=== PATIENT | male | born 1935 | race Caucasian/White ===

== ENCOUNTER 2016-06-02 20:59 | Emergency (ER) | payer MEDICARE, OTHER ==
[~2016-06-02] VITALS: Ht 177.8 cm; Wt 125.0 kg
[~2016-06-02 20:59] MED LIST: ALLO100T PO; ASPI81 PO; CIPR500T4 PO; EZET10 PO; LANTUSP SQ; LISI-360 PO; METO50CR PO; NOVOLOGP2 SQ
[2016-06-02 21:12] VITALS: BP 139/77; PULSE 78; RESP 24; TEMP 97.5; O2SAT 97
[2016-06-02 22:30] VITALS: BP 140/70; PULSE 80; RESP 16; O2SAT 97
--- NOTE | 2016-06-02 23:24 | PD ---
HPI Chief Complaint: cough for one month Time Seen by Provider: 23:17 Travel History International Travel<30 days: No Contact w/Intl Traveler<30days: No Traveled to known affect area: No History of Present Illness HPI The patient is a 80-year-old male that earlier today he felt some sharp, pleuritic pain in the midsternal area. It hurt so much when he took a deep breath that he had to breathe shallow respirations. This pain is subsequently gone and he denies any shortness of breath, fever or any chest pain at this time. The patient has had a "cold" for a month. He saw his primary care physician 2 days ago and was prescribed a course of prednisone as well as Levaquin which she is still on. He does not smoke. He does have a history of coronary artery disease and has several coronary stents. PFSH Past Medical History Arthritis: No Asthma: No Blood Disorders: No Anxiety: Yes Depression: No Heart Rhythm Problems: No Cancer: No Cardiac Catheterization: Yes (ONE STENT) Cardiovascular Problems: No High Cholesterol: Yes Chest Pain: Yes Congestive Heart Failure: No COPD: No Cerebrovascular Accident: No Diabetes: Yes Diminished Hearing: No GERD: No Glaucoma: No Gout: Yes Headaches: No Hepatitis: No Hiatal Hernia: No Hypertension: Yes Kidney Stones: No Musculoskeletal: No Neurologic: No Psychiatric: No Reproductive: No Respiratory: No Myocardial Infarction: No Renal Failure: No Seizures: No Sickle Cell Disease: No Sleep Apnea: No Thyroid Disease: No Ulcer: No PNEUMOCCOCAL Vaccine (Year): 2 Past Surgical History Abdominal Surgery: Yes (hernia repair) AICD: No Body Medical Devices: CARDIAC STENT Cardiac Surgery: No Ear Surgery: No Endocrine Surgery: No Eye Surgery: No Genitourinary Surgery: No Gynecologic Surgery: No Oral Surgery: No Pacemaker: No Thoracic Surgery: No Other Surgery: Yes (TOP OF HEAD SKIN ) Social History Alcohol Use: Yes (weekend) Tobacco Use: No Substance Use: No Allergies-Medications (Allergen,Severity, Reaction): Coded Allergies: Penicillin (Verified Allergy, Severe, SHOCK, 07/26/12) Reported Meds & Prescriptions Reported Meds & Active Scripts Active Reported Lantus Inj (Insulin Glargine) 1,000 Unit/10 Ml Vial 60 Units SQ BID Lisinopril-Hctz 20-12.5 Mg Tab 1 Tab PO DAILY Zetia (Ezetimibe) 10 Mg Tab 10 Mg PO HS Aspirin 81 Mg Tabdr 162 Mg PO DAILY Latanoprost Opth Drops (Latanoprost) 0.005% Drops 1 Drop EACH EYE HS Refrigerate until opened. Novolog Inj (Insulin Aspart) 1,000 Unit/10 Ml Vial 14 Units SQ TID Max dose at bedtime ( ) units; sugars less than 70,(0) units; sugars 150-199,(2) units; sugars 200-249,(4) units; sugars 250-299,(7) units; sugars 300-349,(10) units; sugars greater than 349,(12)units Metoprolol Tartrate 25 Mg Tab 25 Mg PO HS Allopurinol 100 Mg Tab 100 Mg PO DAILY Review of Systems Except as stated in HPI: all other systems reviewed are Neg Physical Exam Narrative GENERAL: The patient is obese and alert in no apparent distress. His vital signs initially showed a respiratory rate of 24 with the rest of the vital signs being normal and oximetry being 97% on room air. Repeat respiratory rate is 21 I see the patient SKIN: Warm and dry. HEAD: Atraumatic. Normocephalic. EYES: Pupils equal and round. No scleral icterus. No injection or drainage. ENT: No nasal bleeding or discharge. Mucous membranes pink and moist. NECK: Trachea midline. No JVD. CARDIOVASCULAR: Regular rate and rhythm. No murmur appreciated. RESPIRATORY: No accessory muscle use. Clear to auscultation. Breath sounds equal bilaterally. GASTROINTESTINAL: Abdomen soft, non-tender, nondistended. Hepatic and splenic margins not palpable. MUSCULOSKELETAL: No obvious deformities. No clubbing. No cyanosis. No edema. NEUROLOGICAL: Awake and alert. No obvious cranial nerve deficits. Motor grossly within normal limits. Normal speech. PSYCHIATRIC: Appropriate mood and affect; insight and judgment normal. Data Data Last Documented VS Vital Signs Date Time Temp Pulse Resp B/P Pulse Ox O2 Delivery O2 Flow Rate FiO2 06/03/16 00:52 79 18 148/59 96 Room Air 06/02/16 21:12 97.5 Orders Basic Metabolic Panel (Bmp) (06/02/16 23:18) B-Type Natriuretic Peptide (06/02/16 23:18) Ckmb (Isoenzyme) Profile (06/02/16 23:18) Complete Blood Count With Diff (06/02/16 23:18) Comprehensive Metabolic Panel (06/02/16 23:18) Magnesium (Mg) (06/02/16 23:18) Troponin I (06/02/16 23:18) Ecg Monitoring (06/02/16 23:18) Iv Access Insert/Monitor (06/02/16 23:18) Oximetry (06/02/16 23:18) Oxygen Administration (06/02/16 23:18) Sodium Chloride 0.9% Flush (Ns Flush) (06/02/16 23:30) Chest, Pa & Lat (06/02/16 23:18) CKMB (06/02/16 23:40) CKMB% (06/02/16 23:40) Labs Laboratory Tests Test 06/02/16 23:40 White Blood Count 17.4 TH/MM3 Red Blood Count 4.81 MIL/MM3 Hemoglobin 15.6 GM/DL Hematocrit 47.1 % Mean Corpuscular Volume 97.9 FL Mean Corpuscular Hemoglobin 32.5 PG Mean Corpuscular Hemoglobin 33.2 % Concent Red Cell Distribution Width 13.9 % Platelet Count 256 TH/MM3 Mean Platelet Volume 9.7 FL Neutrophils (%) (Auto) 72.3 % Lymphocytes (%) (Auto) 19.2 % Monocytes (%) (Auto) 7.6 % Eosinophils (%) (Auto) 0.6 % Basophils (%) (Auto) 0.3 % Neutrophils # (Auto) 12.6 TH/MM3 Lymphocytes # (Auto) 3.3 TH/MM3 Monocytes # (Auto) 1.3 TH/MM3 Eosinophils # (Auto) 0.1 TH/MM3 Basophils # (Auto) 0.1 TH/MM3 CBC Comment DIFF FINAL Differential Comment Sodium Level 143 MEQ/L Potassium Level 3.7 MEQ/L Chloride Level 104 MEQ/L Carbon Dioxide Level 29.8 MEQ/L Anion Gap 9 MEQ/L Blood Urea Nitrogen 18 MG/DL Creatinine 1.10 MG/DL Estimat Glomerular Filtration 65 ML/MIN Rate Random Glucose 108 MG/DL Calcium Level 8.3 MG/DL Magnesium Level 2.4 MG/DL Total Bilirubin 0.4 MG/DL Aspartate Amino Transf 29 U/L (AST/SGOT) Alanine Aminotransferase 39 U/L (ALT/SGPT) Alkaline Phosphatase 58 U/L Total Creatine Kinase 136 U/L Creatine Kinase MB 2.8 NG/ML Troponin I LESS THAN 0.02 NG/ML B-Type Natriuretic Peptide 20 PG/ML Total Protein 7.7 GM/DL Albumin 3.6 GM/DL MDM Medical Decision Making Medical Screen Exam Complete: Yes Emergency Medical Condition: Yes Medical Record Reviewed: Yes Interpretation(s) The EKG shows sinus rhythm with a rate of [address] elevation or depression. The white count is 17,400 with 72% neutrophils. The complete metabolic profile shows a calcium of 8.3 but is otherwise normal. The BNP is normal. The cardiac enzymes are normal. The chest x-ray shows no acute cardiopulmonary disease. Differential Diagnosis Viral syndrome, acute myocardial infarction, pneumonia, bronchitis, dehydration , electrolyte disorder, renal insufficiency Narrative Course The patient likely has a viral syndrome. The elevated white count is likely due to the prednisone that he has been on. Procedures EKG Prior to Arrival: No Diagnosis Primary Impression: Viral syndrome Additional Instructions: As we discussed, finish up the prednisone and the antibiotic. Follow-up with your primary care physician next week. Drink plenty of liquids. Viruses reduced resistance to bacterial infections such as pneumonia so if he get worse he may need to return to emergency department for reevaluation. Med/Other Pt SpecificInfo: No Change to Meds Disposition: 01 DISCHARGE HOME Condition: Stable Hernan Heard MD Jun 02, 2016 23:24
[2016-06-02] MEDS ORDERED: SODIUM CHLORIDE 0.9% FLUSH 5 ML FLUSH IVF PRN (23:30)
--- NOTE | 2016-06-02 23:44 | RADHPO ---
EXAM DATE/TIME: 06/02/2016 23:24 [facility] COMPARISON: CHEST PA & LAT, July 26, 2012, 11:08. INDICATIONS : Chest pain. MEDICAL HISTORY : Hypertension. Hypercholesterolemia. Diabetes, Anxiety SURGICAL HISTORY : Coronary artery stent. Hernia repair, Hip surgery ENCOUNTER: Initial ACUITY: 1 day PAIN SCORE: 10 LOCATION: Bilateral chest FINDINGS: PA and lateral views of the chest demonstrate the lungs to be symmetrically aerated without evidence of mass, infiltrate or effusion. The cardiomediastinal contours are unremarkable. Osseous structure s are intact. CONCLUSION: No evidence of acute cardiopulmonary disease. Eliu Beaulieu MD on June 02, 2016 at 23:41 Board Certified Radiologist. This report was verified electronically.
[2016-06-03 00:02] LABS: AUTOMATED NEUTROPHIL # 12.6 TH/MM3 (1.8-7.7); BASOPHIL # 0.1 TH/MM3 (0-0.2); BASOPHIL % 0.3 % (0.0-2.0); EOSINOPHIL # 0.1 TH/MM3 (0-0.4); EOSINOPHIL % 0.6 % (0.0-4.0); HEMATOCRIT 47.1 % (39.0-51.0); LYMPH % 19.2 % (9.0-44.0); LYMPHOCYTE # 3.3 TH/MM3 (1.0-4.8); MEAN CELL VOLUME 97.9 FL (80.0-100.0); MEAN CORPUSCULAR HEMOGLOBIN 32.5 PG (27.0-34.0); MEAN CORPUSCULAR HGB CONC 33.2 % (32.0-36.0); MONO % 7.6 % (0.0-8.0); NEUT % 72.3 % (16.0-70.0); PLATELET COUNT 256 TH/MM3 (150-450); RED BLOOD COUNT 4.81 MIL/MM3 (4.50-5.90); RED CELL DISTRIBUTION WIDTH 13.9 % (11.6-17.2); WHITE BLOOD COUNT 17.4 TH/MM3 (4.0-11.0)
[2016-06-03 00:03] LABS: HEMO FLAGS DIFF FINAL
[2016-06-03 00:10] LABS: CHLORIDE 104 MEQ/L (98-107); POTASSIUM 3.7 MEQ/L (3.5-5.1); SODIUM (NA) 143 MEQ/L (136-145)
[2016-06-03 00:14] LABS: ANION GAP 9 MEQ/L (5-15); BICARBONATE 29.8 MEQ/L (21.0-32.0); BLOOD UREA NITROGEN 18 MG/DL (7-18); MAGNESIUM 2.4 MG/DL (1.5-2.5)
[2016-06-03 00:17] LABS: ALT (GPT) 39 U/L (12-78); AST (GOT) 29 U/L (15-37); GLOMERULAR FILTRATION RATE 65 ML/MIN (>89)
[2016-06-03 00:19] LABS: TOTAL BILIRUBIN ADULT 0.4 MG/DL (0.2-1.0)
[2016-06-03 00:20] LABS: ALKALINE PHOSPHATASE 58 U/L (45-117); CREATINE KINASE 136 U/L (39-308)
[2016-06-03 00:32] LABS: CKMB 2.8 NG/ML (0.5-3.6)
[2016-06-03] MEDS ORDERED: NOVOLOGP2 SQ (00:44)
[2016-06-03] MEDS ORDERED: ZETI10TA5 PO (00:44)
[2016-06-03] MEDS ORDERED: METO25TA3 PO (00:44)
[2016-06-03] MEDS ORDERED: ALLO100T PO (00:44)
[2016-06-03] MEDS ORDERED: LANTUS2P SQ (00:44)
[2016-06-03] MEDS ORDERED: ASPI1TAB69 PO (00:44)
[2016-06-03] MEDS ORDERED: LISI20TA PO (00:44)
[2016-06-03] MEDS ORDERED: LATA0.002 EACH EYE (00:44)
[2016-06-03 00:52] VITALS: BP 148/59; PULSE 79; RESP 18; O2SAT 96
--- NOTE | 2016-06-03 13:15 | EKG ---
Date Performed: 06/02/2016 Time Performed: 21:28:22 PTAGE: 80 years EKG: Sinus rhythm Poor R wave progression - probable normal variant Inferior T wave changes are nonspecific Low QRS vo ltages in precordial leads Compared to prior tracing no significant change Borderline ECG PREVIOUS TRACING : 10/28/2010 21.01 DOCTOR: Kam Fernandez Interpretating Date/Time 06/03/2016 13:13:39
== END 2016-06-03 01:15 | disposition home or self-care (01) ==
LOC: PHED 20:59
DX: B34.9 Viral infection, unspecified (principal); E78.00 Pure hypercholesterolemia, unspecified; E11.9 Type 2 diabetes mellitus without complications; I10 Essential (primary) hypertension; M10.9 Gout, unspecified; I25.10 Atherosclerotic heart disease of native coronary artery without angina pectoris; R94.31 Abnormal electrocardiogram [ECG] [EKG]; R07.1 Chest pain on breathing; Z95.5 Presence of coronary angioplasty implant and graft
CPT/HCPCS: 71020; 80053; 82550; 82552; 83735; 83880; 84484; 85025; 93005; 99284

== ENCOUNTER → 2016-07-05 | Outpatient (CLI) | payer MEDICARE, OTHER ==
[~2016-07-05] MED LIST changes: +ASPI1TAB69 PO; -ASPI81 PO; -CIPR500T4 PO; -EZET10 PO; +LANTUS2P SQ; -LANTUSP SQ; +LATA0.002 EACH EYE; -LISI-360 PO; +LISI20TA PO; +METO25TA3 PO; -METO50CR PO; +ZETI10TA5 PO
[2016-07-05 12:46] LABS: MICRO ALBUMIN RANDOM URINE RAW 6.6 MG/L (0.0-30.0)
[2016-07-05 12:56] LABS: ANION GAP 8 MEQ/L (5-15); BICARBONATE 29.4 MEQ/L (21.0-32.0); BLOOD UREA NITROGEN 14 MG/DL (7-18); CHLORIDE 101 MEQ/L (98-107); GLOMERULAR FILTRATION RATE 61 ML/MIN (>89); GLUCOSE,FASTING 104 MG/DL (74-99); HDL CHOLESTEROL 41.3 MG/DL (40.0-60.0); LDL CHOLESTEROL 71 MG/DL (0-99); POTASSIUM 3.9 MEQ/L (3.5-5.1); SODIUM (NA) 138 MEQ/L (136-145)
[2016-07-05 15:56] LABS: HEMOGLOBIN A1a 0.9 %; HEMOGLOBIN A1b 1.5 %; HEMOGLOBIN Ao 86.6 %; HEMOGLOBIN LA1C 1.9 %; HEMOGLOBIN P3 3.4 %
== END ==
LOC: PLAB 08:43
DX: E11.65 Type 2 diabetes mellitus with hyperglycemia (principal)
CPT/HCPCS: 36415; 80048; 80061; 82043; 83036

== ENCOUNTER → 2016-10-04 | Outpatient (CLI) | payer MEDICARE, OTHER ==
[2016-10-04 09:35] LABS: ANION GAP 11 MEQ/L (5-15); BICARBONATE 25.9 MEQ/L (21.0-32.0); BLOOD UREA NITROGEN 15 MG/DL (7-18); CHLORIDE 100 MEQ/L (98-107); GLOMERULAR FILTRATION RATE 85 ML/MIN (>89); POTASSIUM 3.5 MEQ/L (3.5-5.1); SODIUM (NA) 137 MEQ/L (136-145)
[2016-10-04 09:42] LABS: GLUCOSE,FASTING 99 MG/DL (74-99)
[2016-10-04 16:19] LABS: HEMOGLOBIN A1b 1.5 %; HEMOGLOBIN LA1C 1.8 %; HEMOGLOBIN P3 3.6 %
== END ==
LOC: PLAB 07:41
DX: E11.65 Type 2 diabetes mellitus with hyperglycemia (principal)
CPT/HCPCS: 36415; 80048; 83036

== ENCOUNTER 2016-12-27 13:19 | Inpatient (IN) | payer MEDICARE, OTHER ==
[~2016-12-27] VITALS: Ht 177.8 cm; Wt 111.8 kg
[2016-12-27 13:21] VITALS: BP 158/73; PULSE 64; RESP 24; TEMP 97.4; O2SAT 97
[2016-12-27] MEDS ORDERED: SODIUM CHLOR 0.9% 1000 ML INJ 1,000 ML IV SCH (13:39)
[2016-12-27 13:44] VITALS: O2SAT 97
[2016-12-27] MEDS ORDERED: ONDANSETRON HCL 4 MG/2 ML VIAL IVP ONE (13:45)
[2016-12-27] MEDS ORDERED: SODIUM CHLORIDE 0.9% FLUSH 10 ML FLUSH IV FLUSH PRN ×2 (13:45→17:45)
[2016-12-27] MEDS ORDERED: MORPHINE SULFATE 4 MG/ML INJ IV PUSH ONE (13:45)
--- NOTE | 2016-12-27 13:46 | PD ---
HPI Chief Complaint: Abdominal Pain Time Seen by Provider: 13:27 Travel History International Travel<30 days: No Contact w/Intl Traveler<30days: No Traveled to known affect area: No History of Present Illness HPI The patient is a 81-year-old male who presents to the emergency department for abdominal pain. The patient states he was awakened last night at 1 AM with right lower quadrant abdominal pain which has progressed in intensity throughout the night and during the day. The pain is located right lower quadrant, radiates to the right flank, and is associated with decreased appetite. Last meal was this morning, breakfast prerenal, but he does note decreased appetite. He denies any nausea, vomiting, dysuria, frequency, urgency , or hematuria. He does have a remote history of kidney stones with different symptoms. Previous abdominal surgery includes repair of inguinal hernia. The patient does have a history of coronary artery disease, hypertension, hyperlipidemia, and diabetes. The patient's primary physician is Dr. Peter Slater. [facility] Past Medical History Arthritis: No Asthma: No Blood Disorders: No Anxiety: Yes Depression: No Heart Rhythm Problems: No Cancer: No Cardiac Catheterization: Yes (ONE STENT) Cardiovascular Problems: Yes High Cholesterol: Yes Chest Pain: Yes Congestive Heart Failure: No COPD: No Cerebrovascular Accident: No Diabetes: Yes Diminished Hearing: No GERD: No Glaucoma: No Gout: Yes Headaches: No Hepatitis: No Hiatal Hernia: No Hypertension: Yes Kidney Stones: No Musculoskeletal: No Neurologic: No Psychiatric: No Reproductive: No Respiratory: No Myocardial Infarction: No Renal Failure: No Seizures: No Sickle Cell Disease: No Sleep Apnea: No Thyroid Disease: No Ulcer: No PNEUMOCCOCAL Vaccine (Year): 2 Past Surgical History Abdominal Surgery: Yes (hernia repair) AICD: No Body Medical Devices: CARDIAC STENT Cardiac Surgery: No Ear Surgery: No Endocrine Surgery: No Eye Surgery: No Genitourinary Surgery: No Gynecologic Surgery: No Oral Surgery: No Pacemaker: No Thoracic Surgery: No Other Surgery: Yes (TOP OF HEAD SKIN ) Social History Alcohol Use: Yes (weekend) Tobacco Use: No Substance Use: No Allergies-Medications (Allergen,Severity, Reaction): Coded Allergies: penicillin G (Unverified Allergy, Severe, SHOCK, 12/05/16) Reported Meds & Prescriptions Reported Meds & Active Scripts Active Reported Aspirin 81 Mg Chew 162 Mg CHEW DAILY Lantus Inj (Insulin Glargine) 1,000 Unit/10 Ml Vial 60 Units SQ BID Lisinopril-Hctz 20-12.5 Mg Tab 1 Tab PO DAILY Zetia (Ezetimibe) 10 Mg Tab 10 Mg PO HS Latanoprost Opth Drops (Latanoprost) 0.005% Drops 1 Drop EACH EYE HS Refrigerate until opened. Metoprolol Tartrate 25 Mg Tab 25 Mg PO HS Allopurinol 100 Mg Tab 100 Mg PO DAILY Review of Systems Except as stated in HPI: all other systems reviewed are Neg General / Constitutional: No: Fever Cardiovascular: No: Chest Pain or Discomfort Respiratory: No: Shortness of Breath Gastrointestinal: Positive: Abdominal Pain, No: Nausea, Vomiting, Diarrhea Genitourinary: No: Urgency, Frequency, Dysuria, Hematuria Skin: No Rash Physical Exam Narrative GENERAL: Awake, alert, pleasant 81-year-old male who appears his stated age and is in no acute respiratory distress. SKIN: Focused skin assessment warm/dry. HEAD: Atraumatic. Normocephalic. EYES: No injection or drainage. ENT: No nasal bleeding or discharge. Mucous membranes pink and moist. NECK: Trachea midline. No JVD. CARDIOVASCULAR: Regular rate and rhythm. No murmur appreciated. RESPIRATORY: No accessory muscle use. Clear to auscultation. Breath sounds equal bilaterally. GASTROINTESTINAL: Abdomen soft, tender to palpation right lower quadrant. No guarding or rigidity noted. MUSCULOSKELETAL: No obvious deformities. No clubbing. No cyanosis. No edema. NEUROLOGICAL: Awake and alert. No obvious cranial nerve deficits. Motor grossly within normal limits. Normal speech. PSYCHIATRIC: Appropriate mood and affect; insight and judgment normal. Data Data Last Documented VS Vital Signs Date Time Temp Pulse Resp B/P (MAP) Pulse Ox O2 Delivery O2 Flow Rate FiO2 12/27/16 13:44 97 Room Air 12/27/16 13:21 97.4 64 24 Orders Orders Complete Blood Count With Diff (12/27/16 13:39) Comprehensive Metabolic Panel (12/27/16 13:39) Lipase (12/27/16 13:39) Lactic Acid (12/27/16 13:39) Urinalysis - C+S If Indicated (12/27/16 13:39) Ct Abd/Pel W/O Iv Contrast (12/27/16 13:39) Iv Access Insert/Monitor (12/27/16 13:39) Ecg Monitoring (12/27/16 13:39) Oximetry (12/27/16 13:39) Morphine Inj (Morphine Inj) (12/27/16 13:45) Ondansetron Inj (Zofran Inj) (12/27/16 13:45) Sodium Chlor 0.9% 1000 Ml Inj (Ns 1000 M (12/27/16 13:39) Sodium Chloride 0.9% Flush (Ns Flush) (12/27/16 13:45) Us Abdomen Gallbladder (12/27/16 ) Admit Order (Ed Use Only) (12/27/16 16:48) Labs Laboratory Tests Test 12/27/16 13:55 12/27/16 14:51 12/27/16 14:53 12/27/16 16:30 White Blood Count 14.6 TH/MM3 Red Blood Count 4.60 MIL/MM3 Hemoglobin 14.9 GM/DL Hematocrit 44.9 % Mean Corpuscular Volume 97.6 FL Mean Corpuscular Hemoglobin 32.4 PG Mean Corpuscular Hemoglobin Concent 33.1 % Red Cell Distribution Width 14.7 % Platelet Count 222 TH/MM3 Mean Platelet Volume 9.7 FL Neutrophils (%) (Auto) 70.6 % Lymphocytes (%) (Auto) 19.2 % Monocytes (%) (Auto) 9.0 % Eosinophils (%) (Auto) 0.5 % Basophils (%) (Auto) 0.7 % Neutrophils # (Auto) 10.3 TH/MM3 Lymphocytes # (Auto) 2.8 TH/MM3 Monocytes # (Auto) 1.3 TH/MM3 Eosinophils # (Auto) 0.1 TH/MM3 Basophils # (Auto) 0.1 TH/MM3 CBC Comment DIFF FINAL Differential Comment Blood Urea Nitrogen 14 MG/DL Creatinine 1.07 MG/DL Random Glucose 94 MG/DL Total Protein 7.6 GM/DL Albumin 3.7 GM/DL Calcium Level 8.8 MG/DL Alkaline Phosphatase 58 U/L Aspartate Amino Transf (AST/SGOT) 19 U/L Alanine Aminotransferase (ALT/SGPT) 23 U/L Total Bilirubin 0.6 MG/DL Sodium Level 139 MEQ/L Potassium Level 3.6 MEQ/L Chloride Level 104 MEQ/L Carbon Dioxide Level 28.7 MEQ/L Anion Gap 6 MEQ/L Triglycerides Level 97 MG/DL Cholesterol Level 159 MG/DL LDL Cholesterol 91 MG/DL HDL Cholesterol 48.5 MG/DL Cholesterol/HDL Ratio 3.27 RATIO Lipase 2561 U/L Lactic Acid Level 2.7 mmol/L Urine Color YELLOW Urine Turbidity CLEAR Urine pH 6.5 Urine Specific Gilman 1.011 Urine Protein NEG mg/dL Urine Glucose (UA) NEG mg/dL Urine Ketones NEG mg/dL Urine Occult Blood MOD Urine Nitrite NEG Urine Bilirubin NEG Urine Urobilinogen LESS THAN 2.0 MG/DL Urine Leukocyte Esterase NEG Urine RBC 4 /hpf Urine WBC 1 /hpf Urine Bacteria RARE /hpf Microscopic Urinalysis Comment CULT NOT INDICATED MDM Medical Decision Making Medical Screen Exam Complete: Yes Emergency Medical Condition: Yes Medical Record Reviewed: Yes Differential Diagnosis Differential diagnosis includes appendicitis, atypical cholecystitis, diverticulitis, incarcerated hernia, partial small bowel obstruction, nephrolithiasis, pyelonephritis. Narrative Course IV was established, labs are drawn and sent, and the patient was placed on cardiac telemetry monitoring and continuous pulse oximetry monitoring. CT of the abdomen and pelvis was ordered to evaluate for possible appendicitis. The patient was administered morphine, Zofran, and IV fluids for his symptoms. Procedures Procedure Narrative I placed a 20-gauge, 1.88 inch ultrasound-guided IV in the right forearm, volar aspect, using a linear probe. The patient tolerated the procedure without difficulty. There was good blood return and the IV flowed easily. There were no visible complications. Physician Communication Physician Communication The patient's primary physician is Dr. Slater, therefore, [facility] were paged for admission. Diagnosis Primary Impression: Pancreatitis Qualified Codes: K85.90 - Acute pancreatitis without necrosis or infection, unspecified Admitting Information Admitting Physician Requests: Admit Condition: Stable Kaleb Lamar MD Dec 27, 2016 13:46
[2016-12-27] MEDS ORDERED: ASPI81CH CHEW (13:50)
[2016-12-27 14:33] LABS: AUTOMATED NEUTROPHIL # 10.3 TH/MM3 (1.8-7.7); BASOPHIL # 0.1 TH/MM3 (0-0.2); BASOPHIL % 0.7 % (0.0-2.0); EOSINOPHIL # 0.1 TH/MM3 (0-0.4); EOSINOPHIL % 0.5 % (0.0-4.0); HEMATOCRIT 44.9 % (39.0-51.0); HEMO FLAGS DIFF FINAL; LYMPH % 19.2 % (9.0-44.0); LYMPHOCYTE # 2.8 TH/MM3 (1.0-4.8); MEAN CELL VOLUME 97.6 FL (80.0-100.0); MEAN CORPUSCULAR HEMOGLOBIN 32.4 PG (27.0-34.0); MEAN CORPUSCULAR HGB CONC 33.1 % (32.0-36.0); NEUT % 70.6 % (16.0-70.0); PLATELET COUNT 222 TH/MM3 (150-450); RED CELL DISTRIBUTION WIDTH 14.7 % (11.6-17.2); WHITE BLOOD COUNT 14.6 TH/MM3 (4.0-11.0)
[2016-12-27 15:44] LABS: ALT (GPT) 23 U/L (12-78); ANION GAP 6 MEQ/L (5-15); AST (GOT) 19 U/L (15-37); BICARBONATE 28.7 MEQ/L (21.0-32.0); BLOOD UREA NITROGEN 14 MG/DL (7-18); CHLORIDE 104 MEQ/L (98-107); POTASSIUM 3.6 MEQ/L (3.5-5.1); SODIUM (NA) 139 MEQ/L (136-145)
[2016-12-27 15:45] LABS: ALKALINE PHOSPHATASE 58 U/L (45-117); TOTAL BILIRUBIN ADULT 0.6 MG/DL (0.2-1.0)
--- NOTE | 2016-12-27 16:13 | RADRPT ---
EXAM DATE/TIME: 12/27/2016 14:36 [facility] COMPARISON: No previous studies available for comparison. INDICATIONS : Right lower quadrant pain ORAL CONTRAST: No oral contrast ingested. RADIATION DOSE: 22.21 CTDIvol (mGy) MEDICAL HISTORY : Cardiovascular disease. Hypertension. Diabetes mellitus type 1. SURGICAL HISTORY : None. ENCOUNTER: Initial ACUITY: 1 day PAIN SCALE: 5/10 LOCATION: Right lower quadrant TECHNIQUE: Volumetric scanning of the abdomen and pelvis was performed. Using automated exposure control and ad justment of the mA and/or kV according to patient size, radiation dose was kept as low as reasonably achievable to obtain optimal diagnostic quality images. DICOM format image data is available electro nically for review and comparison. FINDINGS: LOWER LUNGS: The visualized lower lungs are clear. LIVER: Homogeneous density without lesion for noncontrast technique. There is no dilation of the biliary tr ee. There are 2 calcified gallstones, one near the neck measuring 11 mm and the other in the depende nt body measuring 3 mm.. SPLEEN: Normal size without lesion. PANCREAS: Within normal limits. KIDNEYS: Normal in size and shape. There is no mass. Tiny nonobstructing stones upper pole left kidney and l ower pole right kidney measuring less than 2 mm.. Dominant transcortical cyst upper pole right kidne y measuring 5 cm. ADRENAL GLANDS: Within normal limits. VASCULAR: There is no aortic aneurysm. BOWEL/MESENTERY: No dilated loops of small or large bowel. Small hiatus hernia. A few scattered diverticula in the s igmoid. ABDOMINAL WALL: Within normal limits. RETROPERITONEUM: There is no lymphadenopathy. BLADDER: No wall thickening or mass. REPRODUCTIVE: Within normal limits. INGUINAL: Bilateral fat containing inguinal hernias. MUSCULOSKELETAL: Within normal limits for patient age. CONCLUSION: 1. Bilateral fat containing inguinal hernias. 2. Calcified gallstones. 3. Tiny nonobstructing calcified renal stones. 4. Sigmoid diverticula without radiographic evidence of diverticulitis. Bradly Page MD on December 27, 2016 at 15:51 Board Certified Radiologist. This report was verified electronically.
[2016-12-27 17:20] LABS: BACTERIA, URINE RARE /hpf; BLOOD, URINE MOD (NEG); COMMENT (UR) CULT NOT INDICATED; CULTURE IF INDICATED CULT NOT INDICATED; GLUCOSE,URINE NEG (NEG); KETONE, URINE NEG (NEG); NITRITE,URINE NEG (NEG); PH, URINE 6.5 (5.0-8.5); URINE COLOR YELLOW (YELLW/STRAW)
[2016-12-27] MEDS ORDERED: MAGNESIUM HYDROXIDE SUSP 30 ML CUP PO PRN (17:45)
[2016-12-27] MEDS ORDERED: ONDANSETRON HCL 4 MG/2 ML VIAL IVP PRN (17:45)
[2016-12-27] MEDS ORDERED: BISACODYL 10 MG SUPP RECTAL PRN (17:45)
[2016-12-27] MEDS ORDERED: SENNOSIDES 8.6 MG TAB PO PRN (17:45)
[2016-12-27] MEDS ORDERED: ACETAMINOPHEN 325 MG TAB PO PRN (17:45)
[2016-12-27] MEDS ORDERED: LACTULOSE SYRUP 20 GM/30 ML CUP PO PRN (17:45)
[2016-12-27] MEDS ORDERED: NALOXONE HCL 0.4 MG/ML AMP IV PRN (17:45)
--- NOTE | 2016-12-27 17:53 | RADRPT ---
EXAM DATE/TIME: 12/27/2016 16:32 [facility] COMPARISON: No previous studies available for comparison. INDICATIONS : Right upper quadrant pain. MEDICAL HISTORY : Hypercholesterolemia. Hypertension. Diabetes. Anxiety. Gout. SURGICAL HISTORY : Cardiac catheterization. Hernia repair. Hip surgery. ENCOUNTER: Initial ACUITY: 3 days PAIN SCORE: 2/10 LOCATION: Right upper quadrant MEASUREMENTS: LIVER: 20.7 cm length COMMON DUCT: 6 mm RIGHT KIDNEY: 13.2 x 5.4 x 4.7 cm FINDINGS: LIVER: Poor delineation of the hepatic parenchyma with fairly homogeneous echotexture. Hepatopedal flow is seen in the main portal vein. No evidence of biliary ductal dilatation. COMMON DUCT: No intraluminal mass or stone visualized. GALLBLADDER: 1.3 cm echogenic and shadowing stone in the gallbladder lumen. Gallbladder wall normal in thickness. Negative sonographic Thompson's sign. PANCREAS: Not well seen RIGHT KIDNEY: No evidence of hydronephrosis, stone, or mass. Dominant cyst midpole measuring 5.1 x 5.1 cm. CONCLUSION: 1. Hepatomegaly without focal lesion. 2. Shadowing moderately large gallstones. Bradly Page MD on December 27, 2016 at 17:49 Board Certified Radiologist. This report was verified electronically.
--- NOTE | 2016-12-27 18:18 | HHI.HP ---
[facility] Peter Slater DO Admission Diagnosis pancreatitis, gallstones, lactic acidosis Diagnoses: Chief Complaint: Abdominal pain Travel History International Travel<30 Days: No Contact w/Intl Traveler <30 Da: No Traveled to Known Affected Are: No History of Present Illness This is an 81-year-old male with past medical history of type 2 diabetes insulin -dependent who presented with abdominal pain. Patient stated that he woke up around 1 AM with right lower quadrant abdominal pain. He stated that he try to sleep it off but it worsen so he went to the emergency department. Patient denies any nausea or vomiting. He stated that he never had this type of pain before. Patient denies any fevers or chills. All other review symptoms reviewed and negative. Past Family Social History Past Medical History Hypertension, type 2 diabetes insulin-dependent, coronary artery disease, peripheral neuropathy, gout Past Surgical History Cardiac catheterization with angioplasty Reported Medications Aspirin 81 Mg Chew 162 Mg CHEW DAILY Lantus Inj (Insulin Glargine) 1,000 Unit/10 Ml Vial 60 Units SQ BID Lisinopril-Hctz 20-12.5 Mg Tab 1 Tab PO DAILY Zetia (Ezetimibe) 10 Mg Tab 10 Mg PO HS Latanoprost Opth Drops (Latanoprost) 0.005% Drops 1 Drop EACH EYE HS Refrigerate until opened. Metoprolol Tartrate 25 Mg Tab 25 Mg PO HS Allopurinol 100 Mg Tab 100 Mg PO DAILY Allergies: Coded Allergies: penicillin G (Unverified Allergy, Severe, SHOCK, 12/05/16) Active Ordered Medications Current Medications Morphine Sulfate (Morphine Inj) 4 mg ONCE ONCE IV PUSH Last administered on 14:27; Start 12/27/16 at 13:45; Stop 12/27/16 at 13:46; Status DC Ondansetron HCl (Zofran Inj) 4 mg ONCE ONCE IVP Last administered on 12/27/16 14:27; Start 12/27/16 at 13:45; Stop 12/27/16 at 13:46; Status DC Sodium Chloride 1,000 ml @ 125 mls/hr Q8H IV Last administered on 12/27/16t 15: 00; Start 12/27/16 at 13:39; Stop 12/27/16 at 21:38 Sodium Chloride (NS Flush) 2 ml UNSCH PRN IV FLUSH FLUSH AFTER USING IV ACCESS ; Start 12/27/16 at 13:45 Family History Reviewed family history. Social History Denies any alcohol, tobacco or illicit drug use. Physical Exam Vital Signs Vital Signs Date Time Temp Pulse Resp B/P (MAP) Pulse Ox O2 Delivery O2 Flow Rate FiO2 12/27/16 13:44 97 Room Air 12/27/16 13:21 97.4 64 24 158/73 (101) 97 Room Air Physical Exam GENERAL: This is a well-nourished, well-developed patient, in no apparent distress. SKIN: No rashes, ecchymoses or lesions. Cool and dry. HEAD: Atraumatic. Normocephalic. No temporal or scalp tenderness. EYES: Pupils equal round and reactive. Extraocular motions intact. No scleral icterus. No injection or drainage. ENT: Nose without bleeding, purulent drainage or septal hematoma. Throat without erythema, tonsillar hypertrophy or exudate. Uvula midline. Airway patent. NECK: Trachea midline. No JVD or lymphadenopathy. Supple, nontender, no meningeal signs. CARDIOVASCULAR: Regular rate and rhythm without murmurs, gallops, or rubs. RESPIRATORY: Clear to auscultation. Breath sounds equal bilaterally. No wheezes , rales, or rhonchi. GASTROINTESTINAL: Abdomen soft, tenderness to palpation in the right side of the abdomen, nondistended. No hepato-splenomegaly, or palpable masses. No guarding. MUSCULOSKELETAL: Extremities without clubbing, cyanosis, or edema. No joint tenderness, effusion, or edema noted. No calf tenderness. Negative Homans sign bilaterally. NEUROLOGICAL: Awake and alert. Cranial nerves II through XII intact. Motor and sensory grossly within normal limits. Five out of 5 muscle strength in all muscle groups. Normal speech. Laboratory Laboratory Tests Test 12/27/16 13:55 12/27/16 14:51 12/27/16 14:53 12/27/16 16:30 White Blood Count 14.6 Red Blood Count 4.60 Hemoglobin 14.9 Hematocrit 44.9 Mean Corpuscular Volume 97.6 Mean Corpuscular Hemoglobin 32.4 Mean Corpuscular Hemoglobin Concent 33.1 Red Cell Distribution Width 14.7 Platelet Count 222 Mean Platelet Volume 9.7 Neutrophils (%) (Auto) 70.6 Lymphocytes (%) (Auto) 19.2 Monocytes (%) (Auto) 9.0 Eosinophils (%) (Auto) 0.5 Basophils (%) (Auto) 0.7 Neutrophils # (Auto) 10.3 Lymphocytes # (Auto) 2.8 Monocytes # (Auto) 1.3 Eosinophils # (Auto) 0.1 Basophils # (Auto) 0.1 CBC Comment DIFF FINAL Differential Comment Blood Urea Nitrogen 14 Creatinine 1.07 Random Glucose 94 Total Protein 7.6 Albumin 3.7 Calcium Level 8.8 Alkaline Phosphatase 58 Aspartate Amino Transf (AST/SGOT) 19 Alanine Aminotransferase (ALT/SGPT) 23 Total Bilirubin 0.6 Sodium Level 139 Potassium Level 3.6 Chloride Level 104 Carbon Dioxide Level 28.7 Anion Gap 6 Lipase 2561 Lactic Acid Level 2.7 Urine Color YELLOW Urine Turbidity CLEAR Urine pH 6.5 Urine Specific [place] 1.011 Urine Protein NEG Urine Glucose (UA) NEG Urine Ketones NEG Urine Occult Blood MOD Urine Nitrite NEG Urine Bilirubin NEG Urine Urobilinogen LESS THAN 2.0 Urine Leukocyte Esterase NEG Urine RBC 4 Urine WBC 1 Urine Bacteria RARE Microscopic Urinalysis Comment CULT NOT INDICATED Result Diagram: 12/27/16 1355 12/27/16 1451 Imaging Last Impressions Abdomen/Pelvis CT 12/27/16 1339 Signed Impressions: Service Date/Time: Tuesday, December 27, 2016 14:36 - CONCLUSION: 1. Bilateral fat containing inguinal hernias. 2. Calcified gallstones. 3. Tiny nonobstructing calcified renal stones. 4. Sigmoid diverticula without radiographic evidence of diverticulitis. Bradly Page MD [place] VTE Risk Assessment Cap[place]ini VTE Risk Assessment: Mod/High Risk (score >= 2) Caprini Risk Assessment Model Point Value = 1 Point Value = 2 Point Value = 3 Point Value = 5 Age 41-60 Minor surgery BMI > 25 kg/m2 Swollen legs Varicose veins or History of unexplained or recurrent spontaneous Oral contraceptives or hormone replacement Sepsis (< 1 month) Serious lung disease, including pneumonia (< 1 month) Abnormal pulmonary function Acute myocardial infarction Congestive heart failure (< 1 month) History of inflammatory bowel disease Medical patient at bed rest Age 61-74 Arthroscopic surgery Major open surgery (> 45 min) Laparoscopic surgery (> 45 min) Malignancy Confined to bed (> 72 hours) Immobilizing plaster cast Central venous access Age >= 75 History of VTE Family history of VTE Factor V Leiden Prothrombin [id number] Lupus anticoagulant Anticardiolipin antibodies Elevated serum homocysteine Heparin-induced thrombocytopenia Other congenital or acquired thrombophilia Stroke (< 1 month) Elective arthroplasty Hip, pelvis, or leg fracture Acute spinal cord injury (< 1 month) Prophylaxis Regimen Total Risk Factor Score Risk Level Prophylaxis Regimen 0-1 Low Early ambulation 2 Moderate Order ONE of the following: *Sequential Compression Device (SCD) *Heparin 5000 units SQ BID 3-4 Higher Order ONE of the following medications: *Heparin 5000 units SQ TID *Enoxaparin/Lovenox 40 mg SQ daily (WT < 150 kg, CrCl > 30 mL/min) *Enoxaparin/Lovenox 30 mg SQ daily (WT < 150 kg, CrCl > 10-29 mL/min) *Enoxaparin/Lovenox 30 mg SQ BID (WT < 150 kg, CrCl > 30 mL/min) AND/OR *Sequential Compression Device (SCD) 5 or more Highest Order ONE of the following medications: *Heparin 5000 units SQ TID (Preferred with Epidurals) *Enoxaparin/Lovenox 40 mg SQ daily (WT < 150 kg, CrCl > 30 mL/min) *Enoxaparin/Lovenox 30 mg SQ daily (WT < 150 kg, CrCl > 10-29 mL/min) *Enoxaparin/Lovenox 30 mg SQ BID (WT < 150 kg, CrCl > 30 mL/min) AND *Sequential Compression Device (SCD) Assessment and Plan Assessment and Plan 81-year-old male with past mental history type 2 diabetes insulin-dependent with peripheral neuropathy and coronary artery disease who presented with abdominal pain Abdominal pain -CT scan showed inguinal hernias, gallstones, nonobstructing renal stones, and sigmoid diverticula. Labs reviewed with leukocytosis and elevated lipase. Most likely secondary to pancreatitis. -Pending gallbladder ultrasound. May need to consult GI based on results. We will get a lipid panel. -Will give supportive care with IV fluids, antiemetics, pain medication. Will also give Levaquin to treat empirically for possible gallbladder infection pending gallbladder ultrasound report. Coronary artery disease/hypertension/gout -Resume home medication. Type 2 diabetes insulin-dependent with peripheral neuropathy -Since patient is nothing by mouth Will start patient on a lower dose of long- acting insulin. Will place patient on insulin sliding scope. -Hypoglycemia protocol. -Adjust accordingly. DVT prophylaxis -Lovenox. Discussed Condition With patient Physician Certification 2 Midnight Certification Type: Admission for Inpatient Services Order for Inpatient Services The services are ordered in accordance with Medicare regulations or non- Medicare payer requirements, as applicable. In the case of services not specified as inpatient-only, they are appropriately provided as inpatient services in accordance with the 2-midnight benchmark. Estimated LOS (days): 3 3 days is the estimated time the patient will need to remain in the hospital, assuming treatment plan goals are met and no additional complications. Post-Hospital Plan: Daniela Ly MD Dec 27, 2016 18:18
[2016-12-27] MEDS ORDERED: DEXTROSE 50% IN WATER 50 ML VIAL(D50) IV PRN (18:30)
[2016-12-27] MEDS ORDERED: GLUCAGON 1 MG/ML VIAL OTHER PRN (18:30)
[2016-12-27] MEDS: LEVOFLOXACIN 500 MG PREMIX INJ 100 ML IV SCH (18:52)
[2016-12-27] MEDS: SODIUM CHLOR 0.9% 1000 ML INJ 1,000 ML IV SCH (18:53)
[2016-12-27] MEDS: HYDROmorphone HCL PF 2 MG/ML VIAL IV PUSH PRN (18:53)
[2016-12-27 18:59] LABS: HDL CHOLESTEROL 48.5 MG/DL (40.0-60.0)
[2016-12-27] MEDS: ENOXAPARIN SODIUM 40 MG/0.4 ML SYRINGE SQ SCH (20:36)
[2016-12-27 20:55] VITALS: BP 130/52; PULSE 56; RESP 18; TEMP 96.6; O2SAT 100
[2016-12-27] MEDS: METOPROLOL TARTRATE 25 MG TAB PO SCH (21:37)
[2016-12-27] MEDS: EZETIMIBE 10 MG TAB PO SCH (21:37)
[2016-12-27] MEDS: SODIUM CHLORIDE 0.9% FLUSH 10 ML FLUSH IV FLUSH SCH (21:37)
[2016-12-27] MEDS: DOCUSATE SODIUM 50 MG/SENNA 8.6 MG TAB PO SCH (21:37)
[2016-12-27] MEDS: LATANOPROST 0.005% OPHT SOLN 2.5 ML BTL EACH EYE SCH (21:43)
[2016-12-27] MEDS: INSULIN ASPART SUPPLEMENTAL SCALE SQ SCH (21:43)
[2016-12-28] MEDS: HYDROmorphone HCL PF 2 MG/ML VIAL IV PUSH PRN ×4 (00:13→17:30)
[2016-12-28 00:25] VITALS: BP 119/62; PULSE 52; RESP 18; TEMP 96.4; O2SAT 97
[2016-12-28 04:00] VITALS: BP 166/88; PULSE 54; RESP 16; TEMP 97; O2SAT 92
[2016-12-28] MEDS: SODIUM CHLOR 0.9% 1000 ML INJ 1,000 ML IV SCH ×2 (04:28→14:00)
[2016-12-28] MEDS: INSULIN ASPART SUPPLEMENTAL SCALE SQ SCH ×4 (05:48→20:59)
[2016-12-28 07:24] LABS: HEMATOCRIT 41.6 % (39.0-51.0); MEAN CELL VOLUME 98.2 FL (80.0-100.0); MEAN CORPUSCULAR HEMOGLOBIN 33.7 PG (27.0-34.0); MEAN CORPUSCULAR HGB CONC 34.3 % (32.0-36.0); PLATELET COUNT 174 TH/MM3 (150-450); RED BLOOD COUNT 4.24 MIL/MM3 (4.50-5.90); RED CELL DISTRIBUTION WIDTH 14.4 % (11.6-17.2); REVIEW FLAG FINAL; WHITE BLOOD COUNT 9.4 TH/MM3 (4.0-11.0)
[2016-12-28 07:47] LABS: BICARBONATE 28.4 MEQ/L (21.0-32.0); POTASSIUM 3.7 MEQ/L (3.5-5.1)
[2016-12-28 08:00] VITALS: BP 121/59; PULSE 55; RESP 18; TEMP 96.9; O2SAT 93
[2016-12-28] MEDS: SODIUM CHLORIDE 0.9% FLUSH 10 ML FLUSH IV FLUSH SCH ×2 (09:00→21:00)
[2016-12-28] MEDS ORDERED: NON-FORMULARY DRUG (Lisinopril-Hctz 1 TAB) PO SCH (09:00)
[2016-12-28] MEDS: DOCUSATE SODIUM 50 MG/SENNA 8.6 MG TAB PO SCH ×2 (09:18→21:08)
[2016-12-28] MEDS: ALLOPURINOL 100 MG TAB PO SCH (09:18)
[2016-12-28] MEDS: HYDROCHLOROTHIAZIDE 25 MG TAB PO SCH (09:19)
[2016-12-28] MEDS: ASPIRIN 81 MG CHEW TAB CHEW SCH (09:19)
[2016-12-28] MEDS: LISINOPRIL 20 MG TAB PO SCH (09:19)
--- NOTE | 2016-12-28 11:22 | HHI.PR ---
Subjective Remarks Follow-up abdominal pain Patient continues to have abdominal pain but is controlled current pain regimen. He is requiring IV Dilaudid every 6 hours. Denies any nausea or vomiting. Patient stated that he is very hesitant to eat secondary to the pain. He has not had a bowel movement for 2 days. Patient denying nausea vomiting. He remains afebrile. Objective Vitals Vital Signs Date Time Temp Pulse Resp B/P (MAP) Pulse Ox O2 Delivery O2 Flow Rate FiO2 12/28/16 04:00 97.0 54 16 166/88 (114) 92 12/28/16 00:25 96.4 52 18 119/62 (81) 97 12/27/16 21:05 12/27/16 20:55 96.6 56 18 130/52 (78) 100 12/27/16 13:44 97 Room Air 12/27/16 13:21 97.4 64 24 158/73 (101) 97 Room Air I/O 12/27/16 12/27/16 12/27/16 12/28/16 12/28/16 12/28/16 06:59 14:59 22:59 06:59 14:59 22:59 Intake Total 240 ml 1470 ml Balance 240 ml 1470 ml Intake Oral 240 ml 480 ml IV Total 990 ml # Voids 3 # Bowel Movements 0 Result Diagram: 12/28/16 0655 12/28/16 0655 Imaging Last Impressions Abdomen/Pelvis CT 12/27/16 1339 Signed Impressions: Service Date/Time: Tuesday, December 27, 2016 14:36 - CONCLUSION: 1. Bilateral fat containing inguinal hernias. 2. Calcified gallstones. 3. Tiny nonobstructing calcified renal stones. 4. Sigmoid diverticula without radiographic evidence of diverticulitis. Bradly Page MD Gall Bladder Ultrasound 12/27/16 0000 Signed Impressions: Service Date/Time: Tuesday, December 27, 2016 16:32 - CONCLUSION: 1. Hepatomegaly without focal lesion. 2. Shadowing moderately large gallstones. Bradly Page MD Objective Remarks GENERAL: in NAD CARDIOVASCULAR: Regular rate and rhythm without murmurs, gallops, or rubs. RESPIRATORY: Breath sounds equal bilaterally. No accessory muscle use. GASTROINTESTINAL: Abdomen soft,nondistended. +TTP in the RLQ. Negative for any peritoneal signs. Medications and IVs Current Medications Morphine Sulfate (Morphine Inj) 4 mg ONCE ONCE IV PUSH Last administered on 14:27; Start 12/27/16 at 13:45; Stop 12/27/16 at 13:46; Status DC Ondansetron HCl (Zofran Inj) 4 mg ONCE ONCE IVP Last administered on 12/27/16 14:27; Start 12/27/16 at 13:45; Stop 12/27/16 at 13:46; Status DC Sodium Chloride 1,000 ml @ 125 mls/hr Q8H IV Last administered on 12/27/16 15: 00; Start 12/27/16 at 13:39; Stop 12/27/16 at 21:38; Status DC Sodium Chloride (NS Flush) 2 ml UNSCH PRN IV FLUSH FLUSH AFTER USING IV ACCESS ; Start 12/27/16 at 13:45; Stop 12/27/16 at 17:46; Status DC Sodium Chloride 1,000 ml @ 100 mls/hr Q10H IV Last administered on 12/28/16 04 :28; Start 12/27/16 at 18:00 Sodium Chloride (NS Flush) 2 ml UNSCH PRN IV FLUSH FLUSH AFTER USING IV ACCESS ; Start 12/27/16 at 17:45 Sodium Chloride (NS Flush) 2 ml BID IV FLUSH Last administered on 12/27/16 21: 37; Start 12/27/16 at 21:00 Acetaminophen (Tylenol) 650 mg Q4H PRN PO TEMP > 100.4; Start 12/27/16 at 17:45 Ondansetron HCl (Zofran Inj) 4 mg Q6H PRN IVP NAUSEA OR VOMITING; Start at 17:45 Naloxone HCl (Narcan Inj) 0.4 mg UNSCH PRN IV SEE LABEL COMMENTS; Start at 17:45 Senna/Docusate Sodium (Aury-Colace) 1 tab BID PO Last administered on 12/28/16 09:18; Start 12/27/16 at 21:00 Magnesium Hydroxide (Milk Of Magnesia Liq) 30 ml Q12H PRN PO MILD - MODERATE CONSTIPATION Last administered on 12/28/16 09:18; Start 12/27/16 at 17:45 Sennosides (Senokot) 17.2 mg Q12H PRN PO MODERATE - SEVERE CONSTIPATION; Start 12/27/16 at 17:45 Bisacodyl (Dulcolax Supp) 10 mg DAILY PRN RECTAL SEVERE CONSITIPATION; Start at 17:45 Lactulose (Lactulose Liq) 30 ml DAILY PRN PO SEVERE CONSITIPATION; Start at 17:45 Hydromorphone HCl (Dilaudid Pf Inj) 2 mg Q4H PRN IV PUSH pain 3-10 Last administered on 12/28/16 06:38; Start 12/27/16 at 18:15 Levofloxacin/ Dextrose 100 ml @ 100 mls/hr Q24H IV Last administered on 18:52; Start 12/27/16 at 18:00 Enoxaparin Sodium (Lovenox Inj) 40 mg Q24H SQ Last administered on 12/27/16 20: 36; Start 12/27/16 at 20:00 Dextrose (D50w (Vial) Inj) 50 ml UNSCH PRN IV HYPOGLYCEMIA-SEE COMMENTS; Start 12/27/16 at 18:30 Glucagon (Glucagon Inj) 1 mg UNSCH PRN OTHER HYPOGLYCEMIA-SEE COMMENTS; Start 12/27/16 at 18:30 Insulin Aspart (NovoLOG SUPPLEMENTAL SCALE) 1 ACHS SLIDING SCALE SQ ; Start 12/27/16 at 21:00 Allopurinol (Zyloprim) 100 mg DAILY PO Last administered on 12/28/16 09:18; Start 12/28/16 at 09:00 Aspirin (Aspirin Chew) 162 mg DAILY CHEW Last administered on 12/28/16 09:19; Start 12/28/16 at 09:00 EZETIMIBE (Zetia) 10 mg HS PO Last administered on 12/27/16 21:37; Start at 21:00 Latanoprost (Xalatan 0.005% Opt Soln) 1 drop HS EACH EYE Last administered on 12/27/16 21:43; Start 12/27/16 at 21:00 Metoprolol Tartrate (Lopressor) 25 mg HS PO Last administered on 12/27/16 21:37 ; Start 12/27/16 at 21:00 Non-Formulary Medication 1 tab DAILY PO ; Start 12/28/16 at 09:00; Stop 12/28/16 at 09:00; Status DC Lisinopril (Prinivil) 20 mg DAILY PO Last administered on 12/28/16 09:19; Start 12/28/16 at 09:00 Hydrochlorothiazide (Hydrodiuril) 12.5 mg DAILY PO Last administered on 09:19; Start 12/28/16 at 09:00 A/P Assessment and Plan 81-year-old male with past mental history 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 -CT scan showed inguinal hernias, gallstones, nonobstructing renal stones, and sigmoid diverticula. Labs reviewed with leukocytosis and elevated lipase. Most likely secondary to pancreatitis. -Ultrasound the gallbladder showed moderately large gallstones. -Continue with supportive care with IV fluids, antiemetic and pain medication. Continue with Levaquin. Consult GI. Cholelithiasis -GI consulted. May need a cholecystectomy. Coronary artery disease/hypertension/gout -continue home medication. Type 2 diabetes insulin-dependent with peripheral neuropathy -Continue with insulin sliding scale. -Hypoglycemia protocol. -Adjust accordingly. DVT prophylaxis -Lovenox. Daniela Downs MD Dec 28, 2016 11:22
[2016-12-28 12:00] VITALS: BP 127/56; PULSE 58; RESP 18; TEMP 98.1; O2SAT 92
[2016-12-28 16:00] VITALS: BP 125/64; PULSE 64; RESP 16; TEMP 98.8; O2SAT 92
--- NOTE | 2016-12-28 16:28 | PD.CONS ---
HPI History of Present Illness This is a 81 year old male who presented to the emergency room with abdominal pain. He reports the pain awakened him from his sleep yesterday morning around 1 am. He describes it as a constant dull ache in his right upper and right lower quadrant. There is no radiation. He denies any fevers or chills. He denies any nausea or vomiting. He does have mild bloating. He is not currently having any diarrhea. He was noted to have an elevated lipase and CT scan of the abdomen and pelvis (12/27/16)---> revealed bilateral fat-containing inguinal hernias, calcified gallstones, tiny nonobstructing calcified renal stones, sigmoid diverticula without radiographic evidence of diverticulitis. Gallbladder ultrasound (12/27/16) revealed hepatomegaly without focal lesion, shadowing moderately large gallstones. GI was consulted for further evaluation of acute pancreatitis. Patient denies any prior history of pancreatitis. He has been told in the past that he had gallstones but has never had any issues with this. He does have a history of diabetes and hyperlipidemia. He occasionally drinks alcohol usually one drink on the weekend if he goes out to eat but has not recently had any alcohol. The only new medication he was started on was seen in next for anxiety. Of note, he did recently lose 40 lbs ( intentionally over the past 6 months). He does note that he will have diarrhea if he eats fried foods. (Marsha Duran) PFSH Past Medical History Gout Coronary artery disease Diabetes Hypertension Cholelithiasis Hyperlipidemia Neuropathy Chronic neck and back pain Anxiety Past Surgical History Cardiac catheterization with angioplasty Hip surgery Hernia repair Right rotator cuff surgery (Marsha Duran) Coded Allergies: penicillin G (Unverified Allergy, Severe, SHOCK, 12/05/16) Medications Allergies Coded Allergies Type Severity Reaction Last Updated Verified penicillin G Allergy Severe SHOCK 12/05/16 No Active Scripts Medications Dose Route/Sig Max Daily Dose Days Date Category Dose Instructions Aspirin 81 Mg Chew 162 Mg CHEW DAILY 12/27/16 Reported Lantus Inj (Insulin Glargine) 1,000 Unit/10 Ml Vial 60 Units SQ BID 06/03/16 Reported Lisinopril-Hctz 20-12.5 Mg Tab 1 Tab PO DAILY 06/03/16 Reported Zetia (Ezetimibe) 10 Mg Tab 10 Mg PO HS 06/03/16 Reported Latanoprost Opth Drops (Latanoprost) 0.005% Drops 1 Drop EACH EYE HS 06/03/16 Reported Refrigerate until opened. Metoprolol Tartrate 25 Mg Tab 25 Mg PO HS 06/03/16 Reported Allopurinol 100 Mg Tab 100 Mg PO DAILY 06/03/16 Reported Family History Father from lung cancer Mother from CVA Social History Rare ETOH if he goes out to eat on weekends (one drink), nothing prior to this episode No tobacco No illicit drug (Marsha Duran) Review of Systems Constitutional: COMPLAINS OF: Fatigue Respiratory: DENIES: Cough Cardiovascular: DENIES: Chest pain Gastrointestinal: COMPLAINS OF: Abdominal pain, Diarrhea, Swelling of Abdomen, DENIES: Black stools, Bloody stools, Constipation, Nausea, Vomiting Musculoskeletal: COMPLAINS OF: Joint pain Integumentary: DENIES: Abnormal pigmentation Hematologic/lymphatic: DENIES: Bruising Neurologic: DENIES: Headache Psychiatric: DENIES: Confusion (Marsha Duran) GI Exam Vitals I&O Last Impressions Abdomen/Pelvis CT 12/27/16 1339 Signed Impressions: Service Date/Time: Tuesday, December 27, 2016 14:36 - CONCLUSION: 1. Bilateral fat containing inguinal hernias. 2. Calcified gallstones. 3. Tiny nonobstructing calcified renal stones. 4. Sigmoid diverticula without radiographic evidence of diverticulitis. Bradly Page MD Gall Bladder Ultrasound 12/27/16 0000 Signed Impressions: Service Date/Time: Tuesday, December 27, 2016 16:32 - CONCLUSION: 1. Hepatomegaly without focal lesion. 2. Shadowing moderately large gallstones. Bradly Page MD Vital Signs Date Time Temp Pulse Resp B/P (MAP) Pulse Ox O2 Delivery O2 Flow Rate FiO2 12/28/16 12:00 98.1 58 18 127/56 (79) 92 12/28/16 08:00 96.9 55 18 121/59 (79) 93 12/28/16 04:00 97.0 54 16 166/88 (114) 92 12/28/16 00:25 96.4 52 18 119/62 (81) 97 12/27/16 21:05 12/27/16 20:55 96.6 56 18 130/52 (78) 100 I/O 12/27/16 12/27/16 12/27/16 12/28/16 12/28/16 12/28/16 07:00 15:00 23:00 07:00 15:00 23:00 Intake Total 240 ml 1470 ml Balance 240 ml 1470 ml Intake Oral 240 ml 480 ml IV Total 990 ml # Voids 3 # Bowel Movements 0 Imaging Last Impressions Abdomen/Pelvis CT 12/27/16 1339 Signed Impressions: Service Date/Time: Tuesday, December 27, 2016 14:36 - CONCLUSION: 1. Bilateral fat containing inguinal hernias. 2. Calcified gallstones. 3. Tiny nonobstructing calcified renal stones. 4. Sigmoid diverticula without radiographic evidence of diverticulitis. Bradly Page MD Gall Bladder Ultrasound 12/27/16 0000 Signed Impressions: Service Date/Time: Tuesday, December 27, 2016 16:32 - CONCLUSION: 1. Hepatomegaly without focal lesion. 2. Shadowing moderately large gallstones. Bradly Page MD Laboratory Test 12/27/16 16:30 12/27/16 20:05 12/28/16 06:55 Urine Color YELLOW Urine Turbidity CLEAR Urine pH 6.5 Urine Specific [place] 1.011 Urine Protein NEG mg/dL Urine Glucose (UA) NEG mg/dL Urine Ketones NEG mg/dL Urine Occult Blood MOD Urine Nitrite NEG Urine Bilirubin NEG Urine Urobilinogen LESS THAN 2.0 MG/DL Urine Leukocyte Esterase NEG Urine RBC 4 /hpf Urine WBC 1 /hpf Urine Bacteria RARE /hpf Microscopic Urinalysis Comment CULT NOT INDICATED Lactic Acid Level 1.1 mmol/L White Blood Count 9.4 TH/MM3 Red Blood Count 4.24 MIL/MM3 Hemoglobin 14.3 GM/DL Hematocrit 41.6 % Mean Corpuscular Volume 98.2 FL Mean Corpuscular Hemoglobin 33.7 PG Mean Corpuscular Hemoglobin Concent 34.3 % Red Cell Distribution Width 14.4 % Platelet Count 174 TH/MM3 Mean Platelet Volume 10.1 FL Blood Urea Nitrogen 12 MG/DL Creatinine 0.85 MG/DL Random Glucose 92 MG/DL Calcium Level 7.8 MG/DL Sodium Level 140 MEQ/L Potassium Level 3.7 MEQ/L Chloride Level 106 MEQ/L Carbon Dioxide Level 28.4 MEQ/L Anion Gap 6 MEQ/L Estimat Glomerular Filtration Rate 87 ML/MIN Physical Examination HEENT: Normocephalic; atraumatic; no jaundice. CHEST: CTA CARDIAC: RRR ABDOMEN: Soft, nondistended,RUQ/RLQ tenderness; no hepatosplenomegaly; bowel sounds are present in all four quadrants. EXTREMITIES: No clubbing, cyanosis, or edema. SKIN: Normal; no rash; no jaundice. BAGGAGE HANDLER: No focal deficits; alert and oriented times three. (Marsha Duran) Assessment and Plan Plan ASSESSMENT: - Acute pancreatitis, likely gallbladder/gallstone related. Sudden onset of abdominal pain yesterday 1am, RUQ/RLQ pain. Lipase 2561. CT scan of the abdomen and pelvis (12/27/16)---> revealed bilateral fat-containing inguinal hernias, calcified gallstones, tiny nonobstructing calcified renal stones, sigmoid diverticula without radiographic evidence of diverticulitis. Gallbladder ultrasound (12/27/16) revealed hepatomegaly without focal lesion, shadowing moderately large gallstones. Rare etoh use, none recently. Triglycerides 97. Only new medication xanax. Only suspicious medication is lisinopril-HCTZ (Class III for drug induced pancreatitis) and this is not new. Likely gb related, ? passed stones. No ductal dilatation, no elevated lfts. - Cholelithiasis. Pain woke him up at 1am. Of note, he did recently lose 40 lbs (intentionally over the past 6 months) and reports that he has diarrhea with fried foods. Leukocytosis 9.4. No pericholecystic fluid/wall thickening. - Leukocytosis. Improved - DM, HTN, Anxiety, Hyperlipidemia, neuropathy per attending PLAN: - Clear liquids - IVF - HIDA Scan - CBC, CMP, Lipase in am - Supportive care - Further recommendations to follow based on results of above - Pt seen and examined by Dr. Sanabria and myself and this note is written on his behalf (Marsha Duran) Physician Comments Patient seen and examined Agree with above Continue with current supportive care Monitor labs Await hida scan (Albino Torres MD) Physician Comments Patient was seen and examined by Dr. Torres, we will follow up tomorrow (Power Sanabria MD) Marsha Duran Dec 28, 2016 16:28 Albino Torres MD Dec 28, 2016 18:54 Power Sanabria MD Dec 28, 2016 19:42
[2016-12-28] MEDS: LEVOFLOXACIN 500 MG PREMIX INJ 100 ML IV SCH (17:29)
[2016-12-28 20:20] VITALS: BP 144/61; PULSE 68; RESP 16; TEMP 99; O2SAT 93
[2016-12-28] MEDS: ENOXAPARIN SODIUM 40 MG/0.4 ML SYRINGE SQ SCH (21:08)
[2016-12-28] MEDS: EZETIMIBE 10 MG TAB PO SCH (21:08)
[2016-12-28] MEDS: LATANOPROST 0.005% OPHT SOLN 2.5 ML BTL EACH EYE SCH (21:08)
[2016-12-28] MEDS: METOPROLOL TARTRATE 25 MG TAB PO SCH (21:08)
[2016-12-29] VITALS: BP 129/59; PULSE 71; RESP 16; TEMP 99.8; O2SAT 94
[2016-12-29] MEDS: SODIUM CHLOR 0.9% 1000 ML INJ 1,000 ML IV SCH ×3 (01:52→16:44)
[2016-12-29 04:00] VITALS: BP 120/56; PULSE 64; RESP 17; TEMP 98.8; O2SAT 94
[2016-12-29] MEDS: INSULIN ASPART SUPPLEMENTAL SCALE SQ SCH ×4 (05:36→19:58)
[2016-12-29 07:42] VITALS: BP 120/59; PULSE 57; RESP 18; TEMP 98; O2SAT 92
[2016-12-29] MEDS: HYDROCHLOROTHIAZIDE 25 MG TAB PO SCH (09:06)
[2016-12-29] MEDS: LISINOPRIL 20 MG TAB PO SCH (09:06)
[2016-12-29] MEDS: DOCUSATE SODIUM 50 MG/SENNA 8.6 MG TAB PO SCH ×2 (09:06→19:58)
[2016-12-29] MEDS: ASPIRIN 81 MG CHEW TAB CHEW SCH (09:06)
[2016-12-29] MEDS: SODIUM CHLORIDE 0.9% FLUSH 10 ML FLUSH IV FLUSH SCH ×2 (09:06→19:57)
[2016-12-29] MEDS: ALLOPURINOL 100 MG TAB PO SCH (09:06)
[2016-12-29 09:42] LABS: BASOPHIL # 0.1 TH/MM3 (0-0.2); BASOPHIL % 0.7 % (0.0-2.0); EOSINOPHIL # 0.1 TH/MM3 (0-0.4); EOSINOPHIL % 0.8 % (0.0-4.0); HEMATOCRIT 40.6 % (39.0-51.0); HEMO FLAGS DIFF FINAL; LYMPH % 18.9 % (9.0-44.0); LYMPHOCYTE # 2.1 TH/MM3 (1.0-4.8); MEAN CELL VOLUME 98.5 FL (80.0-100.0); MEAN CORPUSCULAR HEMOGLOBIN 32.4 PG (27.0-34.0); MEAN CORPUSCULAR HGB CONC 32.9 % (32.0-36.0); MONO % 8.8 % (0.0-8.0); NEUT % 70.8 % (16.0-70.0); PLATELET COUNT 156 TH/MM3 (150-450); RED BLOOD COUNT 4.12 MIL/MM3 (4.50-5.90); RED CELL DISTRIBUTION WIDTH 14.2 % (11.6-17.2); WHITE BLOOD COUNT 11.2 TH/MM3 (4.0-11.0)
[2016-12-29 10:48] LABS: ALKALINE PHOSPHATASE 44 U/L (45-117); ALT (GPT) 17 U/L (12-78); ANION GAP 7 MEQ/L (5-15); AST (GOT) 16 U/L (15-37); BICARBONATE 29.7 MEQ/L (21.0-32.0); BLOOD UREA NITROGEN 10 MG/DL (7-18); CHLORIDE 103 MEQ/L (98-107); GLOMERULAR FILTRATION RATE 84 ML/MIN (>89); POTASSIUM 3.9 MEQ/L (3.5-5.1); SODIUM (NA) 140 MEQ/L (136-145); TOTAL BILIRUBIN ADULT 0.9 MG/DL (0.2-1.0)
[2016-12-29 11:00] VITALS: BP 123/57; PULSE 50; RESP 18; TEMP 98.2; O2SAT 94
--- NOTE | 2016-12-29 12:59 | RADRPT ---
EXAM DATE/TIME: 12/29/2016 11:11 [place] COMPARISON: US ABDOMEN - GALLBLADDER, December 27, 2016, 16:32. INDICATIONS : Right upper quadrant pain. DOSE: 4.2 mCi Tc99m Mebrofenin IV MEDICAL HISTORY : Cardiovascular disease. SURGICAL HISTORY : Coronary artery stent. Inguinal hernia repair. Hip surgery. ENCOUNTER: Initial ACUITY: 1 day PAIN SCALE: 2/10 LOCATION: Right upper quadrant TECHNIQUE: Following the intravenous administration of radiotracer, dynamic sequential images were performed wit h continuous acquisition. FINDINGS: HEPATIC KINETICS: There is prompt uptake of radiotracer in the liver. No focal defects are seen. There is normal rate of washout from the hepatic parenchyma. BILIARY CLEARANCE: Activity is first seen in the extrahepatic biliary system at the utes. There is normal excretion int o the small bowel. GALLBLADDER: Activity is first seen in the gallbladder at 25 minutes. Common bile duct kinetics are normal and th ere is no evidence of biliary obstruction. BILIARY ENTRIC REFLUX: None observed. CONCLUSION: No evidence for cystic duct obstruction, however chronic cholecystitis is not excluded. Jennie Chaney MD on December 29, 2016 at 12:56 Board Certified Radiologist. This report was verified electronically.
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
[2016-12-29 16:00] VITALS: BP 133/62; PULSE 61; RESP 18; TEMP 97.2; O2SAT 94
[2016-12-29] MEDS ORDERED: ACETAMINOPHEN/HYDROcodone 325 MG/5 MG TAB PO PRN (16:00)
[2016-12-29] MEDS: LEVOFLOXACIN 500 MG PREMIX INJ 100 ML IV SCH (16:44)
[2016-12-29] MEDS: ENOXAPARIN SODIUM 40 MG/0.4 ML SYRINGE SQ SCH (19:57)
[2016-12-29] MEDS: EZETIMIBE 10 MG TAB PO SCH (19:57)
[2016-12-29] MEDS: METOPROLOL TARTRATE 25 MG TAB PO SCH (19:58)
[2016-12-29] MEDS: LATANOPROST 0.005% OPHT SOLN 2.5 ML BTL EACH EYE SCH (19:58)
[2016-12-29 20:00] VITALS: BP 141/60; PULSE 62; RESP 17; TEMP 97.3; O2SAT 97
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
[2016-12-30] VITALS: BP 132/60; PULSE 59; RESP 16; TEMP 97.1; O2SAT 98
[2016-12-30 04:00] VITALS: BP 130/64; PULSE 80; RESP 16; TEMP 97.1; O2SAT 97
[2016-12-30] MEDS: SODIUM CHLOR 0.9% 1000 ML INJ 1,000 ML IV SCH (04:16)
[2016-12-30] MEDS: INSULIN ASPART SUPPLEMENTAL SCALE SQ SCH (05:54)
[2016-12-30 07:37] VITALS: BP 131/63; PULSE 52; RESP 17; TEMP 96.7; O2SAT 94
[2016-12-30] MEDS: DOCUSATE SODIUM 50 MG/SENNA 8.6 MG TAB PO SCH (09:00)
[2016-12-30] MEDS: SODIUM CHLORIDE 0.9% FLUSH 10 ML FLUSH IV FLUSH SCH (09:00)
[2016-12-30 09:18] LABS: HEMATOCRIT 41.8 % (39.0-51.0); MEAN CELL VOLUME 96.6 FL (80.0-100.0); MEAN CORPUSCULAR HEMOGLOBIN 32.3 PG (27.0-34.0); MEAN CORPUSCULAR HGB CONC 33.4 % (32.0-36.0); PLATELET COUNT 182 TH/MM3 (150-450); RED BLOOD COUNT 4.33 MIL/MM3 (4.50-5.90); RED CELL DISTRIBUTION WIDTH 13.8 % (11.6-17.2); REVIEW FLAG FINAL; WHITE BLOOD COUNT 9.6 TH/MM3 (4.0-11.0)
[2016-12-30] MEDS: LISINOPRIL 20 MG TAB PO SCH (09:32)
[2016-12-30] MEDS: ASPIRIN 81 MG CHEW TAB CHEW SCH (09:32)
[2016-12-30] MEDS: HYDROCHLOROTHIAZIDE 25 MG TAB PO SCH (09:32)
[2016-12-30] MEDS: ALLOPURINOL 100 MG TAB PO SCH (09:32)
[2016-12-30 09:43] LABS: BICARBONATE 27.6 MEQ/L (21.0-32.0); POTASSIUM 3.4 MEQ/L (3.5-5.1)
[2016-12-30] MEDS ORDERED: HYDR-3516 PO (10:22)
[2016-12-30] MEDS ORDERED: LEVA500T20 PO (10:23)
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
== END 2016-12-30 12:07 | disposition left against medical advice (07) | DRG 439 ==
LOC: NEPD 13:19 → NEDA 16:49 → N06B 21:00
PROVIDERS: ADMIT Family Medicine; ATTEND Family Medicine
DX: K85.10 Biliary acute pancreatitis without necrosis or infection (principal); E87.2 Acidosis; E11.40 Type 2 diabetes mellitus with diabetic neuropathy, unspecified; K80.64 Calculus of gallbladder and bile duct with chronic cholecystitis without obstruction; E11.9 Type 2 diabetes mellitus without complications; I25.10 Atherosclerotic heart disease of native coronary artery without angina pectoris; E78.5 Hyperlipidemia, unspecified; I10 Essential (primary) hypertension; M10.9 Gout, unspecified; K57.30 Diverticulosis of large intestine without perforation or abscess without bleeding; K40.20 Bilateral inguinal hernia, without obstruction or gangrene, not specified as recurrent; R16.0 Hepatomegaly, not elsewhere classified; M54.2 Cervicalgia; G89.29 Other chronic pain; M54.9 Dorsalgia, unspecified; F41.9 Anxiety disorder, unspecified; Z79.4 Long term (current) use of insulin; Z88.0 Allergy status to penicillin
CPT/HCPCS: 74176; 76705; 78226; 80048; 80053; 80061; 81001; 82948; 83605; 83690; 85025; 85027; 96361; 96374; 96375; A9537; J1170; J1650; J1956; J2270; J2405; J7030

== ENCOUNTER 2017-01-03 22:54 | Inpatient (IN) | payer MEDICARE, OTHER ==
[~2017-01-03] VITALS: Ht 180.3 cm; Wt 110.0 kg
[~2017-01-03 22:54] MED LIST changes: -ASPI1TAB69 PO; +ASPI81CH CHEW; +HYDR-3516 PO; -LANTUS2P SQ; +LEVA500T20 PO; -NOVOLOGP2 SQ
[2017-01-03 23:05] VITALS: BP 122/62; PULSE 94; RESP 16; TEMP 97.7; O2SAT 99
[2017-01-03] MEDS ORDERED: SODIUM CHLORIDE 0.9% FLUSH 10 ML FLUSH IV FLUSH PRN (23:30)
[2017-01-03] MEDS ORDERED: ONDANSETRON HCL 4 MG/2 ML VIAL IVP ONE (23:30)
[2017-01-03] MEDS ORDERED: DICYCLOMINE HCL 20 MG/2 ML VIAL IM ONE (23:30)
[2017-01-03] MEDS ORDERED: MORPHINE SULFATE 4 MG/ML INJ IV PUSH ONE (23:30)
--- NOTE | 2017-01-03 23:42 | PD ---
HPI Chief Complaint: GI Complaint Time Seen by Provider: 23:25 Travel History International Travel<30 days: No Contact w/Intl Traveler<30days: No Traveled to known affect area: No History of Present Illness HPI 81-year-old male presents to the emergency Department with worsening lower abdominal pain, distention, and reports of constipation. Patient is also having decreased urine output since this afternoon. Patient denies fever, but has shaking chills currently. He denies nausea or vomiting. Patient was recently hospitalized with acute cholecystitis, and pancreatitis due to gallstones. He was discharged on December 30 with some hydrocodone and his normal medications. He feels he may be constipated due to the pain medication. Patient does have a history of type 2 diabetes as well as diverticulitis in the past. Pain is currently 9 out 10 and cramping mainly in the left lower abdominal quadrant. Patient is allergic to penicillin G. PFSH Past Medical History Arthritis: Yes Asthma: No Blood Disorders: No Anxiety: Yes Depression: No Heart Rhythm Problems: No Cancer: No Cardiac Catheterization: Yes (ONE STENT) Cardiovascular Problems: Yes High Cholesterol: Yes Chest Pain: No Congestive Heart Failure: No COPD: No Cerebrovascular Accident: No Diabetes: Yes Diminished Hearing: Yes ([place] GERD: No Glaucoma: No Gout: Yes Headaches: No Hepatitis: No Hiatal Hernia: No Hypertension: Yes Kidney Stones: No Musculoskeletal: No Neurologic: No Psychiatric: No Reproductive: No Respiratory: No Myocardial Infarction: No Renal Failure: No Seizures: No Sickle Cell Disease: No Sleep Apnea: No Thyroid Disease: No Ulcer: No PNEUMOCCOCAL Vaccine (Year): 2 Past Surgical History Abdominal Surgery: Yes (hernia repair) AICD: No Body Medical Devices: CARDIAC STENT Cardiac Surgery: Yes (CARDIAC STENT ) Ear Surgery: No Endocrine Surgery: No Eye Surgery: No Genitourinary Surgery: No Gynecologic Surgery: No Insulin Pump: No Neurologic Surgery: No Oral Surgery: No Pacemaker: No Thoracic Surgery: No Other Surgery: Yes (TOP OF HEAD SKIN ) Social History Alcohol Use: Yes (occ) Tobacco Use: No Substance Use: No Allergies-Medications (Allergen,Severity, Reaction): Coded Allergies: penicillin G (Unverified Allergy, Severe, SHOCK, 01/03/17) Reported Meds & Prescriptions Reported Meds & Active Scripts Active Reported Aspirin 81 Mg Chew 162 Mg CHEW DAILY Lisinopril-Hctz 20-12.5 Mg Tab 1 Tab PO DAILY Zetia (Ezetimibe) 10 Mg Tab 10 Mg PO HS Latanoprost Opth Drops (Latanoprost) 0.005% Drops 1 Drop EACH EYE HS Refrigerate until opened. Metoprolol Tartrate 25 Mg Tab 25 Mg PO HS Allopurinol 100 Mg Tab 100 Mg PO DAILY Review of Systems Except as stated in HPI: all other systems reviewed are Neg General / Constitutional: Positive: Chills, No: Fever Eyes: No: Visual changes HENT: No: Headaches, Vertigo, Lightheadedness, Sore Throat, Neck Stiffness, Neck Pain, Earache Cardiovascular: No: Chest Pain or Discomfort, Palpitations, Irregular Rhythm Respiratory: No: Cough, Shortness of Breath, Wheezing Gastrointestinal: Positive: Nausea, Abdominal Pain, Constipation, Changes in Bowel Habits, Loss of Appetite, No: Vomiting, Diarrhea Genitourinary: Positive: Decreased Urinary Output, No: Urgency, Frequency, Dysuria Musculoskeletal: No: Pain Skin: No Rash Neurologic: No: Weakness Psychiatric: No: Depression Endocrine: No: Polydipsia Hematologic/Lymphatic: No: Easy Bruising Physical Exam Narrative GENERAL: Patient appears in moderate distress. SKIN: Warm and dry. Mild diaphoresis. Normal color. HEAD: Atraumatic. Normocephalic. EYES: Pupils equal and round. No scleral icterus. No injection or drainage. ENT: No nasal bleeding or discharge. Mucous membranes pink and moist. Pharynx is clear. Airway is patent. NECK: Trachea midline. Supple and nontender. CARDIOVASCULAR: Regular rate and rhythm. RESPIRATORY: No accessory muscle use. Clear to auscultation. Breath sounds equal bilaterally. GASTROINTESTINAL: Abdomen soft, moderate diffuse tenderness without point tenderness or rebound. Patient has mild to moderate distention. Hepatic and splenic margins not palpable. MUSCULOSKELETAL: Extremities without clubbing, cyanosis, or edema. No obvious deformities. NEUROLOGICAL: Awake and alert. No obvious cranial nerve deficits. Motor grossly within normal limits. Five out of 5 muscle strength in the arms and legs. Normal speech. PSYCHIATRIC: Appropriate mood and affect; insight and judgment normal. Data Data Last Documented VS Vital Signs Date Time Temp Pulse Resp B/P (MAP) Pulse Ox O2 Delivery O2 Flow Rate FiO2 01/04/17 00:48 16 01/04/17 00:42 92 161/61 (94) 95 Room Air 01/03/17 23:05 97.7 Orders Orders Complete Blood Count With Diff (01/03/17:29) Comprehensive Metabolic Panel (01/03/17:29) Lipase (01/03/17:) Lactic Acid (01/03/17:29) Prothrombin Time / Inr (Pt) (01/03/17:) Act Partial Throm Time (Ptt) (01/03/17:29) Urinalysis - C+S If Indicated (01/03/17:) Iv Access Insert/Monitor (01/03/17:) Ecg Monitoring (01/03/17:) Oximetry (01/03/17:) NPO (01/03/17:) Morphine Inj (Morphine Inj) (01/03/17 23:30) Ondansetron Inj (Zofran Inj) (01/03/17 23:30) Sodium Chloride 0.9% Flush (Ns Flush) (01/03/17:30) Electrocardiogram (01/03/17:) Chest, Single Ap (01/03/17:29) Dicyclomine Inj (Bentyl Inj) (01/03/17 23:30) Levofloxacin 750 Mg Premix Inj (Levaquin (01/04/17 01:00) Metronidazole 500 Mg Inj (Flagyl 500 Mg (01/04/17 01:00) Sodium Chlor 0.9% 1000 Ml Inj (Ns 1000 M (01/04/17 01:00) Ct Abd/Pel W/O Iv Contrast (01/04/17 00:55) Blood Culture (01/04/17 02:00) Place In Observation (01/04/17 ) Vital Signs (Adult) Q4H (01/04/17 02:00) Activity Oob With Assistance (01/04/17 02:00) Screen Printer Helper / Telemetry .CONTINUOUS (01/04/17 02:00) Diet Npo (01/04/17 Breakfast) Sodium Chlor 0.9% 1000 Ml Inj (Ns 1000 M (01/04/17 02:00) Sodium Chloride 0.9% Flush (Ns Flush) (01/04/17 02:00) Sodium Chloride 0.9% Flush (Ns Flush) (01/04/17 09:00) Comprehensive Metabolic Panel (01/05/17 06:00) Complete Blood Count With Diff (01/05/17 06:00) Lipase (01/05/17 06:00) Pt Request For Service (01/04/17 02:00) Case Management Consult (01/04/17 02:00) Naloxone Inj (Narcan Inj) (01/04/17 02:00) Admit Order (Ed Use Only) (01/04/17 02:01) Labs Laboratory Tests Test 01/04/17 00:15 White Blood Count 29.6 TH/MM3 Red Blood Count 5.11 MIL/MM3 Hemoglobin 16.1 GM/DL Hematocrit 49.2 % Mean Corpuscular Volume 96.3 FL Mean Corpuscular Hemoglobin 31.4 PG Mean Corpuscular Hemoglobin Concent 32.6 % Red Cell Distribution Width 13.7 % Platelet Count 275 TH/MM3 Mean Platelet Volume 10.1 FL Neutrophils (%) (Auto) 85.9 % Lymphocytes (%) (Auto) 6.8 % Monocytes (%) (Auto) 5.2 % Eosinophils (%) (Auto) 0.1 % Basophils (%) (Auto) 2.0 % Neutrophils # (Auto) 25.5 TH/MM3 Lymphocytes # (Auto) 2.0 TH/MM3 Monocytes # (Auto) 1.5 TH/MM3 Eosinophils # (Auto) 0.0 TH/MM3 Basophils # (Auto) 0.6 TH/MM3 CBC Comment AUTO DIFF Differential Total Cells Counted 100 Neutrophils % (Manual) 82 % Band Neutrophils % 3 % Lymphocytes % 10 % Monocytes % 5 % Neutrophils # (Manual) 25.2 TH/MM3 Differential Comment FINAL DIFF MANUAL Platelet Estimate NORMAL Platelet Morphology Comment NORMAL Red Cell Morphology Comment NORMAL Prothrombin Time 11.3 SEC Prothromb Time International Ratio 1.0 RATIO Activated Partial Thromboplast Time 37.0 SEC Blood Urea Nitrogen 22 MG/DL Creatinine 1.50 MG/DL Random Glucose 111 MG/DL Total Protein 7.7 GM/DL Albumin 3.6 GM/DL Calcium Level 8.9 MG/DL Alkaline Phosphatase 59 U/L Aspartate Amino Transf (AST/SGOT) 21 U/L Alanine Aminotransferase (ALT/SGPT) 35 U/L Total Bilirubin 0.6 MG/DL Sodium Level 138 MEQ/L Potassium Level 3.6 MEQ/L Chloride Level 100 MEQ/L Carbon Dioxide Level 30.3 MEQ/L Anion Gap 8 MEQ/L Estimat Glomerular Filtration Rate 45 ML/MIN Lactic Acid Level 2.6 mmol/L Lipase 186 U/L MDM Medical Decision Making Medical Screen Exam Complete: Yes Emergency Medical Condition: Yes Medical Record Reviewed: Yes Differential Diagnosis Abdominal pain. Abdominal cramping. Constipation. Diverticulitis. Recurrent cholecystitis. Pancreatitis. Perforated bowel. Ileus. Bowel obstruction. Possible urinary retention. Narrative Course Patient is uncomfortable but medically stable at time of exam. Labs ordered including CBC, CMP, lipase, lactic acid, PT PTT and INR, and urinalysis. EKG and chest x-ray is ordered. CT of the abdomen/pelvis with IV contrast was ordered. Patient is given 4 mg Zofran IV as well as 4 mg morphine IV. Patient is given 20 mg dicyclomine IM. Patient is discussed with Dr. Chand who agrees with the above plan. Chest x-ray shows no free air or acute respiratory findings per radiologist. CBC is significant for leukocytosis of 29.6, 85.9% neutrophils. CMP shows normal electrolytes, BUN is elevated at 22, creatinine is 1.50 which is elevated from last week. Lactic acid is 2.6. AST, ALT, and lipase are all within normal limits. Alkaline phosphatase is 59. Patient's labs are discussed with Dr. Chand who recommends giving the patient Levaquin 750 mg IV, as well as metronidazole 500 mg IV. Patient is given 1000 Tinel's normal saline bolus. CT scan shows #1 calcified gallstones. #2 missed the mesentery. Nonspecific finding but could represent chronic mesenteritis. #3 diverticular disease of the distal descending and sigmoid colon without diverticulitis. Number for stranding of the perirectal fat in the issue rectal fossa which is characteristic of a nonspecific colitis/proctitis. Based on the patient's CT scan, leukocytosis, elevated lactic acid, and shaking chills during the exam Dr. Cagle myself both feel the patient warrants admission and IV antibiotics. 01:30 hours call was placed to the hospitalist for admission. 01:55 patient was discussed with Dr. Mcallister, who requested blood cultures be drawn , and she agreed to admit the patient. Diagnosis Primary Impression: Leucocytosis Qualified Codes: D72.829 - Elevated white blood cell count, unspecified Additional Impressions: Elevated lactic acid level Colitis Proctitis Admitting Information Admitting Physician Requests: Admit Condition: Stable Romero Beebe Jan 03, 2017 23:42
[2017-01-04] VITALS (11 sets, daily range): BP systolic 117–161; BP diastolic 53–61; PULSE 62–95; RESP 16–20; TEMP 95.6–98.7; O2SAT 95–97
--- NOTE | 2017-01-04 00:01 | RADRPT ---
EXAM DATE/TIME: 01/03/2017 23:35 [facility] COMPARISON: No previous studies available for comparison. INDICATIONS : Chest pain. MEDICAL HISTORY : Hypercholesterolemia. Hypertension. Diabetes. SURGICAL HISTORY : Hernia repair. ENCOUNTER: Initial ACUITY: 1 day PAIN SCORE: 1/10 LOCATION: Bilateral lower chest FINDINGS: A single view of the chest demonstrates the lungs to be symmetrically aerated with minimal bibasilar atelectatic changes. No confluent infiltrate or effusion. Heart size is normal. Degenerative spurring of the dorsal spine. Some loss of the right acromiohumeral interval suggest chronic rotator cuff inj ury with osseous pins in the humeral head characteristic of prior rotator cuff repair. Degenerative s purring in the right a.c. joint. CONCLUSION: Minimal bibasilar atelectatic changes. No acute cardiopulmonary process. Daniele Mckinney MD on January 03, 2017 at 23:59 Board Certified Radiologist. This report was verified electronically.
[2017-01-04 00:28] LABS: AUTOMATED NEUTROPHIL # 25.5 TH/MM3 (1.8-7.7); BASOPHIL # 0.6 TH/MM3 (0-0.2); EOSINOPHIL % 0.1 % (0.0-4.0); HEMATOCRIT 49.2 % (39.0-51.0); LYMPH % 6.8 % (9.0-44.0); MEAN CELL VOLUME 96.3 FL (80.0-100.0); MEAN CORPUSCULAR HEMOGLOBIN 31.4 PG (27.0-34.0); MEAN CORPUSCULAR HGB CONC 32.6 % (32.0-36.0); MONO % 5.2 % (0.0-8.0); NEUT % 85.9 % (16.0-70.0); PLATELET COUNT 275 TH/MM3 (150-450); RED BLOOD COUNT 5.11 MIL/MM3 (4.50-5.90); RED CELL DISTRIBUTION WIDTH 13.7 % (11.6-17.2); WHITE BLOOD COUNT 29.6 TH/MM3 (4.0-11.0)
[2017-01-04 00:36] LABS: CHLORIDE 100 MEQ/L (98-107); POTASSIUM 3.6 MEQ/L (3.5-5.1); SODIUM (NA) 138 MEQ/L (136-145)
[2017-01-04 00:38] LABS: HEMO FLAGS AUTO DIFF
[2017-01-04 00:39] LABS: ANION GAP 8 MEQ/L (5-15); BICARBONATE 30.3 MEQ/L (21.0-32.0)
[2017-01-04 00:40] LABS: BLOOD UREA NITROGEN 22 MG/DL (7-18); PROTHROMBIN TIME - PATIENT 11.3 SEC (9.8-11.6)
[2017-01-04 00:42] LABS: ALT (GPT) 35 U/L (12-78); AST (GOT) 21 U/L (15-37)
[2017-01-04 00:43] LABS: GLOMERULAR FILTRATION RATE 45 ML/MIN (>89)
[2017-01-04 00:44] LABS: TOTAL BILIRUBIN ADULT 0.6 MG/DL (0.2-1.0)
[2017-01-04 00:45] LABS: ALKALINE PHOSPHATASE 59 U/L (45-117)
[2017-01-04 00:57] LABS: BANDS 3 % (0-6); NEUTROPHIL # MANUAL DIFF 25.2 TH/MM3 (1.8-7.7); POLYS (SEG NEUTROPHILS) 82 % (16-70); WBC DIFF SAMPLE 100
[2017-01-04 00:58] LABS: PLATELET ESTIMATE SMEAR NORMAL (NORMAL); PLATELET MORPHOLOGY NORMAL (NORMAL); SCAN/DIFF FINAL DIFF MANUAL
[2017-01-04] MEDS ORDERED: metroNIDAZOLE 500 MG INJ 100 ML IV ONE (01:00)
[2017-01-04] MEDS ORDERED: LEVOFLOXACIN 750 MG PREMIX INJ 150 ML IV ONE (01:00)
[2017-01-04] MEDS ORDERED: SODIUM CHLOR 0.9% 1000 ML INJ 1,000 ML IV ONE ×2 (01:00→13:15)
--- NOTE | 2017-01-04 01:26 | RADRPT ---
EXAM DATE/TIME: 01/04/2017 01:05 [place] Corrected on: January 04, 2017; [facility] COMPARISON: CT ABDOMEN & PELVIS W/O CONTRAST, December 27, 2016, 14:36. INDICATIONS : Left lower quadrant pain with constipation. ORAL CONTRAST: No oral contrast ingested. RADIATION DOSE: 24.76 CTDIvol (mGy) MEDICAL HISTORY : Hypertension. Diabetes mellitus type 2. Diverticulitis. SURGICAL HISTORY : Hernia repair. ENCOUNTER: Initial ACUITY: 4 - 6 days PAIN SCALE: 7/10 LOCATION: Left lower quadrant abdomen TECHNIQUE: Volumetric scanning of the abdomen and pelvis was performed. Using automated exposure control and ad justment of the mA and/or kV according to patient size, radiation dose was kept as low as reasonably achievable to obtain optimal diagnostic quality images. DICOM format image data is available electro nically for review and comparison. FINDINGS: LOWER LUNGS: The visualized lower lungs are clear. LIVER: Homogeneous density without lesion. There is no dilation of the biliary tree. Calcified gallstones, largest measuring 1.3 cm in diameter. SPLEEN: Normal size without lesion. PANCREAS: Within normal limits. KIDNEYS: Normal in size and shape. There is no mass, stone, or hydronephrosis. Benign-appearing 4.7 cm cyst l aterally the junction of the upper and midpole of the right kidney ADRENAL GLANDS: Within normal limits. VASCULAR: There is no aortic aneurysm. BOWEL/MESENTERY: There is a "ulysses mesentery" with regional lymph nodes that are normal by size criteria. Findings are nonspecific and may represent a mild, chronic mesenteritis. Scattered diverticular disease of the de scending and sigmoid colon without diverticulitis. Stranding of the perirectal fat in the ischiorecta l fossa characteristic of a nonspecific colitis/proctitis. The appendix is identified and is radiogra phically normal. ABDOMINAL WALL: Within normal limits. RETROPERITONEUM: There is no lymphadenopathy. BLADDER: No wall thickening or mass. REPRODUCTIVE: Within normal limits. INGUINAL: Bilateral inguinal hernias only contain fat. The right measures 2.9 and the left 2.7 cm in diameter. MUSCULOSKELETAL: Left total hip arthroplasty. Otherwise intact. CONCLUSION: 1. Calcified gallstones. 2. "Ulysses mesentery". Nonspecific finding but could represent a chronic mesenteritis. 3. 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 4. Stranding of the perirectal fat in the ischiorectal fossa is characteristic of a nonspecific colit is/proctitis. Daniele Mckinney MD on January 04, 2017 at 1:16 Board Certified Radiologist. This report was verified electronically.
[2017-01-04] MEDS ORDERED: NALOXONE HCL 0.4 MG/ML AMP IV PUSH PRN (02:00)
[2017-01-04] MEDS ORDERED: SODIUM CHLORIDE 0.9% FLUSH 10 ML FLUSH IV FLUSH PRN (02:00)
[2017-01-04] MEDS ORDERED: HYDROmorphone HCL PF 0.5 MG/0.5 ML SYRINGE IV PUSH PRN (02:15)
[2017-01-04] MEDS: SODIUM CHLOR 0.9% 1000 ML INJ 1,000 ML IV SCH ×3 (03:00→20:24)
[2017-01-04] MEDS: SODIUM CHLORIDE 0.9% FLUSH 10 ML FLUSH IV FLUSH SCH ×2 (08:02→20:23)
[2017-01-04] MEDS: metroNIDAZOLE 500 MG INJ 100 ML IV SCH ×3 (08:55→20:22)
--- NOTE | 2017-01-04 13:17 | HHI.HP ---
[facility] Service [place] [facility] Primary Care Physician Peter Slater DO Admission Diagnosis Leukocitosis/Elevated Lactic Acid/Colitis Diagnoses: Chief Complaint: Abdominal pain Travel History International Travel<30 Days: No Contact w/Intl Traveler <30 Da: No Traveled to Known Affected Are: No Sepsis Criteria SIRS Criteria (2 or more): WBC > 67159, < 4000 or > 10% bands Sepsis Criteria (SIRS+source): Infect source susp/known Severe Sepsis (+one): Lactate >2 History of Present Illness This patient is a 81-year-old gentleman with a history of diabetes and possible diverticulitis in the past. Patient had severe abdominal pain associated with worsening constipation. Patient was recently discharged from the hospital 12/30 after evaluation for acute pancreatitis with gallstones. Patient was given some narcotics and noted that his abdomen felt more pain after he was discharge and his constipation got worse. Patient has some nausea and vomiting also and notes that he has had some nonbloody diarrhea for the last 24 hours. Patient's discomfort has been improved with morphine IV. His nausea is improved with Zofran. He shouldn't hasn't started on IV antibiotics and admitted to the hospital for worsening abdominal pain with leukocytosis and signs and symptoms worsening sepsis.. Past Family Social History Past Medical History Chronic constipation Coronary disease and stent Hypertension Hyperlipidemia Past Surgical History Cardiac stents Reported Medications Reviewed in the medical record, recent increase in narcotics Allergies: Coded Allergies: penicillin G (Unverified Allergy, Severe, SHOCK, 01/03/17) Physical Exam Vital Signs Vital Signs Date Time Temp Pulse Resp B/P (MAP) Pulse Ox O2 Delivery O2 Flow Rate FiO2 01/04/17 12:00 97.1 62 20 121/58 (79) 97 01/04/17 09:48 66 01/04/17 08:00 96.8 71 20 131/58 (82) 96 01/04/17 05:58 83 01/04/17 04:00 98.7 82 20 132/61 (84) 96 01/04/17 03:27 92 16 136/55 (82) 96 9/14/17 02:16 95 16 146/55 (85) 95 Room Air 01/04/17 00:48 16 01/04/17 00:42 92 18 161/61 (94) 95 Room Air 01/04/17 00:38 95 Room Air 01/03/17 23:05 97.7 94 16 122/62 (82) 99 Physical Exam GENERAL: This is a well-nourished, well-developed patient, appears dry SKIN: No rashes, ecchymoses or lesions. Cool and dry. HEAD: Atraumatic. Normocephalic. No temporal or scalp tenderness. EYES: Pupils equal round and reactive. Extraocular motions intact. No scleral icterus. No injection or drainage. ENT: Nose without bleeding, purulent drainage or septal hematoma. Throat without erythema, tonsillar hypertrophy or exudate. Uvula midline. Airway patent. NECK: Trachea midline. No JVD or lymphadenopathy. Supple, nontender, no meningeal signs. CARDIOVASCULAR: Regular rate and rhythm without murmurs, gallops, or rubs. RESPIRATORY: Clear to auscultation. Breath sounds equal bilaterally. No wheezes , rales, or rhonchi. GASTROINTESTINAL: Abdomen soft, moderately tender, nondistended. hypoactive. No hepato-splenomegaly, or palpable masses. No guarding. MUSCULOSKELETAL: Extremities without clubbing, cyanosis, or edema. No joint tenderness, effusion, or edema noted. No calf tenderness. Negative Homans sign bilaterally. NEUROLOGICAL: Awake and alert. Cranial nerves II through XII intact. Motor and sensory grossly within normal limits. Five out of 5 muscle strength in all muscle groups. Normal speech. Laboratory Laboratory Tests Test 01/04/17 00:15 White Blood Count 29.6 Red Blood Count 5.11 Hemoglobin 16.1 Hematocrit 49.2 Mean Corpuscular Volume 96.3 Mean Corpuscular Hemoglobin 31.4 Mean Corpuscular Hemoglobin Concent 32.6 Red Cell Distribution Width 13.7 Platelet Count 275 Mean Platelet Volume 10.1 Neutrophils (%) (Auto) 85.9 Lymphocytes (%) (Auto) 6.8 Monocytes (%) (Auto) 5.2 Eosinophils (%) (Auto) 0.1 Basophils (%) (Auto) 2.0 Neutrophils # (Auto) 25.5 Lymphocytes # (Auto) 2.0 Monocytes # (Auto) 1.5 Eosinophils # (Auto) 0.0 Basophils # (Auto) 0.6 CBC Comment AUTO DIFF Differential Total Cells Counted 100 Neutrophils % (Manual) 82 Band Neutrophils % 3 Lymphocytes % 10 Monocytes % 5 Neutrophils # (Manual) 25.2 Differential Comment FINAL DIFF MANUAL Platelet Estimate NORMAL Platelet Morphology Comment NORMAL Red Cell Morphology Comment NORMAL Prothrombin Time 11.3 Prothromb Time International Ratio 1.0 Activated Partial Thromboplast Time 37.0 Blood Urea Nitrogen 22 Creatinine 1.50 Random Glucose 111 Total Protein 7.7 Albumin 3.6 Calcium Level 8.9 Alkaline Phosphatase 59 Aspartate Amino Transf (AST/SGOT) 21 Alanine Aminotransferase (ALT/SGPT) 35 Total Bilirubin 0.6 Sodium Level 138 Potassium Level 3.6 Chloride Level 100 Carbon Dioxide Level 30.3 Anion Gap 8 Estimat Glomerular Filtration Rate 45 Lactic Acid Level 2.6 Lipase 186 Date/Time Source Procedure Growth Status 01/04/17 02:10 Blood Peripheral Aerobic Blood Culture Pending Received 01/04/17 02:10 Blood Peripheral Anaerobic Blood Culture Pending Received Result Diagram: 01/04/17 0015 01/04/17 0015 Imaging Last Impressions Abdomen/Pelvis CT 01/04/17 0055 Signed Impressions: Service Date/Time: December 01:05 - CONCLUSION: 1. Calcified gallstones. 2. Mirtha mesentery. Nonspecific finding but could represent a chronic mesenteritis. 3. 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 4. Stranding of the perirectal fat in the ischiorectal fossa is characteristic of a nonspecific colitis/proctitis. Daniele Mckinney MD Chest X-Ray 01/03/17 8624 Signed Impressions: Service Date/Time: Tuesday, January 03, 2017 23:35 - CONCLUSION: Minimal bibasilar atelectatic changes. No acute cardiopulmonary process. Daniele Mckinney MD Caprini VTE Risk Assessment Caprini VTE Risk Assessment: Mod/High Risk (score >= 2) Caprini Risk Assessment Model Point Value = 1 Point Value = 2 Point Value = 3 Point Value = 5 Age 41-60 Minor surgery BMI > 25 kg/m2 Swollen legs Varicose veins or History of unexplained or recurrent spontaneous Oral contraceptives or hormone replacement Sepsis (< 1 month) Serious lung disease, including pneumonia (< 1 month) Abnormal pulmonary function Acute myocardial infarction Congestive heart failure (< 1 month) History of inflammatory bowel disease Medical patient at bed rest Age 61-74 Arthroscopic surgery Major open surgery (> 45 min) Laparoscopic surgery (> 45 min) Malignancy Confined to bed (> 72 hours) Immobilizing plaster cast Central venous access Age >= 75 History of VTE Family history of VTE Factor V Leiden Prothrombin [id number] Lupus anticoagulant Anticardiolipin antibodies Elevated serum homocysteine Heparin-induced thrombocytopenia Other congenital or acquired thrombophilia Stroke (< 1 month) Elective arthroplasty Hip, pelvis, or leg fracture Acute spinal cord injury (< 1 month) Prophylaxis Regimen Total Risk Factor Score Risk Level Prophylaxis Regimen 0-1 Low Early ambulation 2 Moderate Order ONE of the following: *Sequential Compression Device (SCD) *Heparin 5000 units SQ BID 3-4 Higher Order ONE of the following medications: *Heparin 5000 units SQ TID *Enoxaparin/Lovenox 40 mg SQ daily (WT < 150 kg, CrCl > 30 mL/min) *Enoxaparin/Lovenox 30 mg SQ daily (WT < 150 kg, CrCl > 10-29 mL/min) *Enoxaparin/Lovenox 30 mg SQ BID (WT < 150 kg, CrCl > 30 mL/min) AND/OR *Sequential Compression Device (SCD) 5 or more Highest Order ONE of the following medications: *Heparin 5000 units SQ TID (Preferred with Epidurals) *Enoxaparin/Lovenox 40 mg SQ daily (WT < 150 kg, CrCl > 30 mL/min) *Enoxaparin/Lovenox 30 mg SQ daily (WT < 150 kg, CrCl > 10-29 mL/min) *Enoxaparin/Lovenox 30 mg SQ BID (WT < 150 kg, CrCl > 30 mL/min) AND *Sequential Compression Device (SCD) Assessment and Plan Problem List: (1) Colitis ICD Code: K52.9 - Noninfective gastroenteritis and colitis, unspecified Status: Acute Plan: Continue with empiric antibiotics, metronidazole and Levaquin IV fluids, clear liquids General surgery evaluation due to previous pancreatitis with stones. patient now appears septic from colitis (2) BALJINDER (acute kidney injury) ICD Code: N17.9 - Acute kidney failure, unspecified Plan: Continue IV hydration, follow renal function, avoid nephrotoxic injury and follow urine output (3) Leucocytosis ICD Code: D72.829 - Elevated white blood cell count, unspecified Status: Acute Plan: We'll follow trend, patient likely with early sepsis and colitis Worrisome with his recent history of gallstone pancreatitis Continue to follow after hydration as patient may also be volume contracted (4) DM2 (diabetes mellitus, type 2) ICD Code: E11.9 - Type 2 diabetes mellitus without complications Plan: Patient recently lost 40 pounds on his insulin has been discontinued and he is diet controlled Physician Certification 2 Midnight Certification Type: Admission for Inpatient Services Order for Inpatient Services The services are ordered in accordance with Medicare regulations or non- Medicare payer requirements, as applicable. In the case of services not specified as inpatient-only, they are appropriately provided as inpatient services in accordance with the 2-midnight benchmark. Estimated LOS (days): 3 3 days is the estimated time the patient will need to remain in the hospital, assuming treatment plan goals are met and no additional complications. Post-Hospital Plan: Home Problem Qualifiers (1) Leucocytosis: Qualified Codes: D72.829 - Elevated white blood cell count, unspecified Cheri Keen MD Jan 04, 2017 13:17
--- NOTE | 2017-01-04 14:22 | EKG ---
Date Performed: 01/03/2017 Time Performed: 23:48:16 PTAGE: 81 years EKG: Sinus rhythm WITH OCCASIONAL LATE DIASTOLIC PVCS NONSPECIFIC ST-T WAVE ABNORMALITY LOW QRS VOLTAGE IN PRECORDIAL LEADS Compared to the previous tracing PVCs are new, there is improvement in the R wave progression a cross precordium BORDERLINE ECG PREVIOUS TRACING : 06/02/2016 21.28 DOCTOR: [place] Interpretating Date/Time 01/04/2017 14:20:58
[2017-01-04] MEDS: DOCUSATE SODIUM 100 MG CAP PO SCH (20:22)
[2017-01-04] MEDS ORDERED: EZETIMIBE 10 MG TAB PO SCH (21:00)
[2017-01-04] MEDS ORDERED: LATANOPROST 0.005% OPHT SOLN 2.5 ML BTL EACH EYE SCH (21:00)
[2017-01-04] MEDS ORDERED: METOPROLOL TARTRATE 25 MG TAB PO SCH (21:00)
[2017-01-04 22:32] LABS: GLUCOSE,URINE NEG (NEG); KETONE, URINE NEG (NEG); NITRITE,URINE NEG (NEG)
[2017-01-04 22:36] LABS: BLOOD, URINE TRACE (NEG)
[2017-01-04 22:37] LABS: COMMENT (UR) CULT NOT INDICATED; CULTURE IF INDICATED CULT NOT INDICATED; RBC, URINE 0-3 /hpf (0-3); SQUAMOUS EPITHELIAL CELL URINE 0-5 /hpf (0-5); URINE COLOR YELLOW (YELLW/STRAW); WBC, URINE 0-2 /hpf (0-5)
[2017-01-05] VITALS: BP 121/55; PULSE 62; RESP 20; TEMP 96.6; O2SAT 97
[2017-01-05] MEDS: metroNIDAZOLE 500 MG INJ 100 ML IV SCH ×2 (02:00→09:43)
[2017-01-05 04:00] VITALS: BP 119/60; PULSE 58; RESP 12; TEMP 97.9; O2SAT 96
[2017-01-05 06:01] LABS: BLOOD, URINE TRACE (NEG); GLUCOSE,URINE NEG (NEG); KETONE, URINE NEG (NEG); NITRITE,URINE NEG (NEG); URINE COLOR YELLOW (YELLW/STRAW)
[2017-01-05 06:05] LABS: RBC, URINE 0-3 /hpf (0-3); SQUAMOUS EPITHELIAL CELL URINE 0-5 /hpf (0-5); WBC, URINE 0-2 /hpf (0-5)
[2017-01-05 06:06] LABS: COMMENT (UR) CULT NOT INDICATED; CULTURE IF INDICATED CULT NOT INDICATED
[2017-01-05 08:00] VITALS: BP 119/57; PULSE 56; RESP 20; TEMP 96.9; O2SAT 97
[2017-01-05] MEDS: SODIUM CHLORIDE 0.9% FLUSH 10 ML FLUSH IV FLUSH SCH (08:02)
--- NOTE | 2017-01-05 08:08 | MB ---
cc: EFRAÍN TSANG M.D. DATE OF CONSULTATION: 01/04/2017 REASON FOR CONSULTATION Gallstone seen on CT scan. HISTORY OF PRESENT ILLNESS This is a pleasant 81-year-old gentleman who was recently admitted to the hospital with some increasing pelvic pain, rectal pain and constipation. He had a previous admission earlier this month with what appeared to be gallstone pancreatitis which somewhat resolved. He was in the process of getting referred to a surgeon for evaluation of cholecystectomy. He has a chronic problem with constipation and someone told him at one he had "concrete constipation". Since coming into the hospital he did have a bowel movement. His major complaint is rectal pain from the large bowel movement and constipation. He has had no nausea or vomiting. No pain in his upper abdomen. No pain in his right upper quadrant more specifically. The surgery was asked to comment on his CT scan done recently which showed a stone in the gallbladder with no findings of acute cholecystitis. PAST MEDICAL HISTORY 1. Chronic constipation. 2. Cardiac problems. 3. Diabetes. 4. Peripheral neuropathy in both his feet. 5. Inguinal hernia repair in the past. 6. No abdominal surgery. 7. 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 MEDICATIONS 1. Aspirin on a daily basis. 2. Allopurinol. 3. Zetia. 4. Eye drops. 5. Lisinopril. 6. Metoprolol. ALLERGIES PENICILLIN. PHYSICAL EXAMINATION GENERAL: On examination he is an elderly gentleman who looks his stated age of 81. He is hard of hearing. NECK: Supple. CHEST: Clear. HEART: Regular rate. ABDOMEN: Obese, soft, without rebound or guarding. He is tender in the suprapubic region. His bladder appears to be a little distended. He has no rebound or guarding. EXTREMITIES: He is slow to move. RECTAL: He complains of rectal pain when he moves. I had him lay on his left side. He does not appear to have a perirectal abscess. His rectum is tender. I did not do a rectal exam because of the amount of tenderness he has. I suspect he has a fissure causing his rectal spasm and pain. NEUROLOGIC: He is alert, oriented, hard hearing, but cooperative. LABORATORY DATA White count 29,000, H&H 16 and 49. Chemistry showed a creatinine of 1.5, lactic acid 2.6. LFTs are all normal. His lipase is 186 which is down from earlier this month at 2561. He had an urinalysis ordered in the emergency room but has not been done. IMAGING DATA Imaging studies of his abdomen show no inflammation around the gallbladder. He does have a small stone. There is no inflammation around the pancreas. He does have an inflammatory response around the perirectal fat area consistent with proctitis. He had a chest x-ray which showed atelectasis. He had a HIDA scan done on the which showed no evidence of cystic duct obstruction. An ultrasound done on the showed a large gallstone. CT scan on the showed inguinal hernias and a calcified gallstone. No evidence of diverticulitis. The recent CT scan changed a little bit showing the proctitis. ASSESSMENT An 81-year-old gentleman with a significant elevation in his white count, history of gallstone pancreatitis which resolved earlier this month. At this time I do not think his gallbladder is causing this significant elevation in his white count. I believe he may have a urinary tract infection. The urinalysis is not done yet. He may have a proctitis or a rectal fissure from his constipation problem with the amount of tenderness he is having in his perirectal region. PLAN At this time I would advance his diet, continue the IV antibiotics as scheduled and recheck some blood work in the morning. I doubt at this point that taking his gallbladder out would solve his problems. I did give the my card and told her once he recovers from this proctitis and constipation problem and colitis, would certainly consider elective cholecystectomy so he does not have gallstone pancreatitis again in the future. Efraín Tsang MD JAURORA/CABRERA /5:30 PM /7:47 AM [facility]
[2017-01-05 08:10] LABS: AUTOMATED NEUTROPHIL # 8.3 TH/MM3 (1.8-7.7); BASOPHIL # 0.1 TH/MM3 (0-0.2); BASOPHIL % 0.6 % (0.0-2.0); EOSINOPHIL # 0.1 TH/MM3 (0-0.4); EOSINOPHIL % 1.2 % (0.0-4.0); HEMATOCRIT 41.8 % (39.0-51.0); HEMO FLAGS DIFF FINAL; LYMPH % 18.4 % (9.0-44.0); LYMPHOCYTE # 2.1 TH/MM3 (1.0-4.8); MEAN CELL VOLUME 97.7 FL (80.0-100.0); MEAN CORPUSCULAR HGB CONC 32.7 % (32.0-36.0); MONO % 7.6 % (0.0-8.0); NEUT % 72.2 % (16.0-70.0); PLATELET COUNT 186 TH/MM3 (150-450); RED BLOOD COUNT 4.28 MIL/MM3 (4.50-5.90); RED CELL DISTRIBUTION WIDTH 13.7 % (11.6-17.2); WHITE BLOOD COUNT 11.5 TH/MM3 (4.0-11.0)
[2017-01-05 08:25] LABS: CHLORIDE 106 MEQ/L (98-107); POTASSIUM 3.6 MEQ/L (3.5-5.1); SODIUM (NA) 139 MEQ/L (136-145)
[2017-01-05 08:42] LABS: ALKALINE PHOSPHATASE 66 U/L (45-117); ALT (GPT) 22 U/L (12-78); ANION GAP 7 MEQ/L (5-15); AST (GOT) 21 U/L (15-37); BICARBONATE 25.8 MEQ/L (21.0-32.0); BLOOD UREA NITROGEN 12 MG/DL (7-18); GLOMERULAR FILTRATION RATE 79 ML/MIN (>89); TOTAL BILIRUBIN ADULT 0.9 MG/DL (0.2-1.0)
--- NOTE | 2017-01-05 09:16 | HHI.PR ---
cc: Efraín Zacarias MD Subjective Subjective Notes DAILY PROGRESS NOTE FOR SURGICAL ATTENDING, DR. EFRAÍN ZACARIAS Resting in bed eating breakfast Asking about going home today Objective Vitals/I&O Vital Signs Date Time Temp Pulse Resp B/P (MAP) Pulse Ox O2 Delivery O2 Flow Rate FiO2 01/05/17 08:00 96.9 56 20 119/57 (77) 97 01/04/17 02:16 Room Air Labs Laboratory Tests Test 01/04/17 22:00 01/05/17 07:50 Urine Color YELLOW Urine Turbidity CLEAR Urine pH 6.0 Urine Specific [place] 1.018 Urine Protein NEG Urine Glucose (UA) NEG Urine Ketones NEG Urine Occult Blood TRACE Urine Nitrite NEG Urine Bilirubin NEG Urine Leukocyte Esterase NEG Urine RBC 0-3 Urine WBC 0-2 Urine Squamous Epithelial Cells 0-5 Urine Bacteria NONE Microscopic Urinalysis Comment CULT NOT INDICATED White Blood Count 11.5 Red Blood Count 4.28 Hemoglobin 13.7 Hematocrit 41.8 Mean Corpuscular Volume 97.7 Mean Corpuscular Hemoglobin 32.0 Mean Corpuscular Hemoglobin Concent 32.7 Red Cell Distribution Width 13.7 Platelet Count 186 Mean Platelet Volume 9.7 Neutrophils (%) (Auto) 72.2 Lymphocytes (%) (Auto) 18.4 Monocytes (%) (Auto) 7.6 Eosinophils (%) (Auto) 1.2 Basophils (%) (Auto) 0.6 Neutrophils # (Auto) 8.3 Lymphocytes # (Auto) 2.1 Monocytes # (Auto) 0.9 Eosinophils # (Auto) 0.1 Basophils # (Auto) 0.1 CBC Comment DIFF FINAL Differential Comment Blood Urea Nitrogen 12 Creatinine 0.92 Random Glucose 87 Total Protein 6.3 Albumin 2.9 Calcium Level 8.0 Alkaline Phosphatase 66 Aspartate Amino Transf (AST/SGOT) 21 Alanine Aminotransferase (ALT/SGPT) 22 Total Bilirubin 0.9 Sodium Level 139 Potassium Level 3.6 Chloride Level 106 Carbon Dioxide Level 25.8 Anion Gap 7 Estimat Glomerular Filtration Rate 79 Lactic Acid Level 1.2 Lipase 153 Date/Time Source Procedure Growth Status 01/04/17 02:10 Blood Peripheral Aerobic Blood Culture Pending Received 01/04/17 02:10 Blood Peripheral Anaerobic Blood Culture Pending Received Radiology Last Impressions Abdomen/Pelvis CT 01/04/17 0055 Signed Impressions: Service Date/Time: December 01:05 - CONCLUSION: 1. Calcified gallstones. 2. Mirtha mesentery. Nonspecific finding but could represent a chronic mesenteritis. 3. 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 4. Stranding of the perirectal fat in the ischiorectal fossa is characteristic of a nonspecific colitis/proctitis. Daniele Mckinney MD Chest X-Ray 01/03/17 3968 Signed Impressions: Service Date/Time: Tuesday, January 03, 2017 23:35 - CONCLUSION: Minimal bibasilar atelectatic changes. No acute cardiopulmonary process. Daniele Mckinney MD Cardiovascular: Regular Lungs: Clear Abdomen: Non-distended, Non-tender Extremities: No edema A/P Assessment and Plan 81 year old male with recent history of GS pancreatitis; GS visualized on CT scan; proctitis; constipation; colitis -Tolerating Heart Healthy diet -WBC trending down to 11.5 -Afebrile; VSS -No surgical plans inpatient this admission -Patient to follow up in a few weeks for possible elective cholecystectomy -GS will sign off; Please call if any questions Attending Statement NOTE FOR SURGICAL ATTENDING, DR. EFRAÍN ZACARIAS I agree with above assessment and plan. Patient discharged Will need follow-up appointment to discuss elective cholecystectomy for history of gallstone pancreatitis The following services were provided during this hospital visit: Chart data review, vital sign assessments/reviewing monitor data Review of consultations notes if present. Medication orders/review and/or management Ordering and/or reviewing lab tests Ordering and/or interpreting/reviewing x-rays and/or diagnostic studies Care of the patient and discussion of the patient with the care team Documentation time To help prompt me to consider important information that might be impacting today's encounter and assessment, information from prior notes written by myself or my colleagues may have been "brought forward/copy and pasted" into today's note. Noy Nguyen Jan 05, 2017 09:16 Efraín Zacarias MD Jan 08, 2017 07:29
[2017-01-05] MEDS: SODIUM CHLOR 0.9% 1000 ML INJ 1,000 ML IV SCH (09:44)
[2017-01-05] MEDS: DOCUSATE SODIUM 100 MG CAP PO SCH (09:44)
[2017-01-05] MEDS ORDERED: METR500T10 PO (11:25)
[2017-01-05] MEDS ORDERED: CIPR-9 PO (11:25)
--- NOTE | 2017-01-05 11:26 | HHI.DCPOC ---
Discharge Care Plan Diagnosis: (1) DM2 (diabetes mellitus, type 2) (2) Leucocytosis (3) Colitis Goals to Promote Your Health * To prevent worsening of your condition and complications * To maintain your health at the optimal level Directions to Meet Your Goals Take your medications as prescribed Follow your dietary instruction Follow activity as directed Keep your appointments as scheduled Take your immunizations and boosters as scheduled If your symptoms worsen call your PCP, if no PCP go to Urgent Care Center or Emergency Room Smoking is Dangerous to Your Health. Avoid second hand smoke Call the 24-hour hour crisis hotline for domestic abuse at Cheri Keen MD Jan 05, 2017 11:26
[2017-01-05] MEDS ORDERED: DOCU1CAP39 PO (11:28)
--- NOTE | 2017-01-05 11:29 | HHI.DS ---
Discharge Summary Admission Date Jan 04, 2017 at 13:18 Discharge Date: Jan 05, 2017 Admitting Diagnosis Leukocitosis/Elevated Lactic Acid/Colitis (1) Colitis ICD Code: K52.9 - Noninfective gastroenteritis and colitis, unspecified Status: Acute (2) BALJINDER (acute kidney injury) ICD Code: N17.9 - Acute kidney failure, unspecified (3) Leucocytosis ICD Code: D72.829 - Elevated white blood cell count, unspecified Status: Acute (4) DM2 (diabetes mellitus, type 2) ICD Code: E11.9 - Type 2 diabetes mellitus without complications Procedures None Brief History - From Admission This patient is a 81-year-old gentleman with a history of diabetes and possible diverticulitis in the past. Patient had severe abdominal pain associated with worsening constipation. Patient was recently discharged from the hospital 12/30 after evaluation for acute pancreatitis with gallstones. Patient was given some narcotics and noted that his abdomen felt more pain after he was discharge and his constipation got worse. Patient has some nausea and vomiting also and notes that he has had some nonbloody diarrhea for the last 24 hours. Patient's discomfort has been improved with morphine IV. His nausea is improved with Zofran. He shouldn't hasn't started on IV antibiotics and admitted to the hospital for worsening abdominal pain with leukocytosis and signs and symptoms worsening sepsis.. CBC/BMP: 01/05/17 0750 01/05/17 0750 Significant Findings Laboratory Tests Test 01/04/17 00:15 01/04/17 22:00 01/05/17 07:50 White Blood Count 29.6 TH/MM3 (4.0-11.0) 11.5 TH/MM3 (4.0-11.0) Neutrophils (%) (Auto) 85.9 % (16.0-70.0) 72.2 % (16.0-70.0) Lymphocytes (%) (Auto) 6.8 % (9.0-44.0) Neutrophils # (Auto) 25.5 TH/MM3 (1.8-7.7) 8.3 TH/MM3 (1.8-7.7) Monocytes # (Auto) 1.5 TH/MM3 (0-0.9) Basophils # (Auto) 0.6 TH/MM3 (0-0.2) Neutrophils % (Manual) 82 % (16-70) Neutrophils # (Manual) 25.2 TH/MM3 (1.8-7.7) Activated Partial Thromboplast Time 37.0 SEC (24.3-30.1) Blood Urea Nitrogen 22 MG/DL (7-18) Creatinine 1.50 MG/DL (0.60-1.30) Random Glucose 111 MG/DL (74-106) Estimat Glomerular Filtration Rate 45 ML/MIN (>89) 79 ML/MIN (>89) Lactic Acid Level 2.6 mmol/L (0.4-2.0) Urine Occult Blood TRACE (NEG) Red Blood Count 4.28 MIL/MM3 (4.50-5.90) Total Protein 6.3 GM/DL (6.4-8.2) Albumin 2.9 GM/DL (3.4-5.0) Calcium Level 8.0 MG/DL (8.5-10.1) Imaging Last Impressions Abdomen/Pelvis CT 01/04/17 0055 Signed Impressions: Service Date/Time: December 01:05 - CONCLUSION: 1. Calcified gallstones. 2. Mirtha mesentery. Nonspecific finding but could represent a chronic mesenteritis. 3. 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 4. Stranding of the perirectal fat in the ischiorectal fossa is characteristic of a nonspecific colitis/proctitis. Daniele Mckinney MD Chest X-Ray 01/03/17 2047 Signed Impressions: Service Date/Time: Tuesday, January 03, 2017 23:35 - CONCLUSION: Minimal bibasilar atelectatic changes. No acute cardiopulmonary process. Daniele Mckinney MD PE at Discharge GENERAL: This is a well-nourished, well-developed patient, in no apparent distress. CARDIOVASCULAR: Regular rate and rhythm without murmurs, gallops, or rubs. RESPIRATORY: Clear to auscultation. Breath sounds equal bilaterally. No wheezes , rales, or rhonchi. GASTROINTESTINAL: Abdomen soft, non-tender, nondistended. Normal active bowel sounds MUSCULOSKELETAL: Extremities without clubbing, cyanosis, or edema. NEURO: Alert & Oriented x4 to person, place, time, situation. Moves all ext x4 Pt update on day of discharge Patient seen and evaluated in follow-up for abdominal pain and constipation. Leukocytosis improved. Patient had very satisfactory bowel movements. Seen by general surgery and recommended for continued medical management. Discussed with patient who is in agreement. He will follow-up as outpatient with his surgeon for possible cholecystectomy Hospital Course This patient is a 81-year-old gentleman came in with abdominal pain was severe dehydration. He was constipated with leukocytosis and evidence of colitis on imaging. Patient received IV antibiotics and aggressive hydration. He did have some improvement in his bowel symptoms as well as for leukocytosis and discomfort were improved. Patient was also seen by general surgery due to recent gallstone pancreatitis. Symptoms are improved and patient will follow- up as an outpatient. Pt Condition on Discharge: Good Discharge Disposition: Discharge Home Discharge Time: <= 30 minutes Discharge Instructions DIET: Follow Instructions for: As Tolerated, No Restrictions Activities you can perform: Regular-No Restrictions Follow up Referrals: Surgical - 2 Weeks with Efraín Tsang MD New Medications: Ciprofloxacin (Cipro) 500 Mg Tab 500 MG PO BID for Infection, #10 TAB 0 Refills Metronidazole (Metronidazole) 500 Mg Tab 500 MG PO TID for Infection, #15 TAB 0 Refills Docusate Sodium (Dok) 100 Mg Cap 100 MG PO BID for Constipation, #60 CAP Continued Medications: Allopurinol (Allopurinol) 100 Mg Tab 100 MG PO DAILY for Gout, #30 TAB 0 Refills Aspirin (Aspirin) 81 Mg Chew 162 MG CHEW DAILY, TAB 0 Refills Ezetimibe (Zetia) 10 Mg Tab 10 MG PO HS, #30 TAB 0 Refills Latanoprost Opth Drops (Latanoprost Opth Drops) 0.005% Drops 1 DROP EACH EYE HS for Glaucoma, #2.5 ML 0 Refills Refrigerate until opened. Lisinopril-Hctz (Lisinopril-Hctz) 20-12.5 Mg Tab 1 TAB PO DAILY for Blood Pressure Management, #30 TAB 0 Refills Metoprolol Tartrate (Metoprolol Tartrate) 25 Mg Tab 25 MG PO HS, #30 TAB 0 Refills Cheri Keen MD Jan 05, 2017 11:28
[2017-01-05 11:34] VITALS: BP 121/56; PULSE 65; RESP 20; TEMP 97.6; O2SAT 96
[2017-01-05] MEDS ORDERED: LEVOFLOXACIN 750 MG PREMIX INJ 150 ML IV SCH (12:00)
== END 2017-01-05 12:02 | disposition home or self-care (01) | DRG 392 ==
LOC: PHED 22:54 → INTOOBSV 01-04 02:02 → PHEDA 01-04 02:02 → PH5A 01-04 03:45 → OBSVTOIN 01-04 13:18
PROVIDERS: ADMIT Hospitalist; ATTEND Hospitalist
DX: K52.9 Noninfective gastroenteritis and colitis, unspecified (principal); N17.9 Acute kidney failure, unspecified; G62.9 Polyneuropathy, unspecified; E86.0 Dehydration; E11.9 Type 2 diabetes mellitus without complications; K80.20 Calculus of gallbladder without cholecystitis without obstruction; K57.90 Diverticulosis of intestine, part unspecified, without perforation or abscess without bleeding; E78.5 Hyperlipidemia, unspecified; K59.03 Drug induced constipation; T40.605A Adverse effect of unspecified narcotics, initial encounter; M10.9 Gout, unspecified; I10 Essential (primary) hypertension; H91.90 Unspecified hearing loss, unspecified ear; Z95.5 Presence of coronary angioplasty implant and graft; Z92.3 Personal history of irradiation
CPT/HCPCS: 71010; 74176; 80053; 81001; 83605; 83690; 85007; 85025; 85027; 85610; 85730; 87040; 93005; 96365; 96375; G8987-GP; G8988-GP; J0500; J1956; J2270; J2405; J7030

== ENCOUNTER → 2017-02-14 | Outpatient (CLI) | payer MEDICARE, OTHER ==
[~2017-02-14] MED LIST changes: +CIPR-9 PO; +DOCU1CAP39 PO; -HYDR-3516 PO; -LEVA500T20 PO; +METR500T10 PO
[2017-02-14 14:08] LABS: BICARBONATE 27.3 MEQ/L (21.0-32.0); BLOOD UREA NITROGEN 14 MG/DL (7-18); CHLORIDE 105 MEQ/L (98-107); CREATININE 0.91 MG/DL (0.60-1.30); GLOMERULAR FILTRATION RATE 80 ML/MIN (>89); GLUCOSE,FASTING 104 MG/DL (74-99); SODIUM (NA) 138 MEQ/L (136-145)
[2017-02-14 20:04] LABS: HEMOGLOBIN A1C 5.7 % (4.3-6.0)
== END ==
LOC: PLAB 08:22
DX: E11.65 Type 2 diabetes mellitus with hyperglycemia (principal)
CPT/HCPCS: 36415; 80048; 83036